=== PATIENT | female | born 1960 | race American Indian/Alaskan Native ===

== ENCOUNTER 2017-06-24 14:50 | Emergency (ER) | payer BC, MEDICAID ==
[2017-06-24 15:23] VITALS: O2SAT 100
[2017-06-24] MEDS ORDERED: Sodium Chloride 0.9% 1,000 ML IV ONE (16:03)
[2017-06-24] MEDS ORDERED: Sodium Chloride 0.9% 1,000 ML ONE (16:13)
--- NOTE | 2017-06-24 16:15 | C.PDOC ---
History Of Present Illness 56 year old female presents to Emergency Department for evaluation of a "dizzy spell" today while attending a wake. Dizziness is described as feeling off balance. She states she felt dizzy and had mild (1 out of 10 on pain scale) midsternal chest tightness when she heard grim news about family member. Patient reports intermittent chest discomfort associated with shortness of breath that lasts for approximately 10-15 minutes for 8 days. Denies any symptoms currently, and states she feels "fine" at this time. Patient states that she has been evaluated by her cryptologic support specialist, Dr. Tovar, with normal work up. PMD: Linda Diego Time Seen by Provider: 06/24/17 15:51 Chief Complaint (Nursing): Shortness Of Breath History Per: Patient History/Exam Limitations: no limitations Onset/Duration Of Symptoms: Days Current Symptoms Are (Timing): Still Present Associated Symptoms: Heart Racing, Dizziness. denies: Fever, Chills, Sweating, Bloody Cough, Productive Cough, Leg/Calf Pain, Ankle/Leg Swelling, Tingling In Hands Or Face, Musle Spasms In Hands Or Feet Recent travel outside of the [place]: No Additional History Per: Patient Past Medical History Reviewed: Historical Data, Nursing Documentation, Vital Signs Vital Signs: Last Vital Signs Temp 98.0 F 06/24/17 15:18 Pulse 96 H 06/24/17 16:20 Resp 20 06/24/17 16:20 BP 107/74 06/24/17 16:20 Pulse Ox 100 06/24/17 18:23 - Medical History PMH: Bronchitis, HTN, Hypercholesterolemia Denies: Chronic Kidney Disease Family History: States: Unknown Family Hx - Social History Hx Alcohol Use: No Hx Substance Use: No - Immunization History Hx Tetanus Toxoid Vaccination: No Hx Influenza Vaccination: No Hx Pneumococcal Vaccination: No Review Of Systems Except As Marked, All Systems Reviewed And Found Negative. Constitutional: Negative for: Fever, Chills Cardiovascular: Positive for: Chest Pain, Palpitations. Negative for: Edema, Light Headedness Respiratory: Positive for: Shortness of Breath. Negative for: Cough, Sputum Gastrointestinal: Positive for: Nausea. Negative for: Vomiting, Abdominal Pain Neurological: Positive for: Dizziness. Negative for: Weakness, Numbness, Headache Physical Exam - Physical Exam Appears: Non-toxic, No Acute Distress Skin: Normal Color, Warm, Dry Head: Atraumatic, Normacephalic Eye(s): bilateral: Normal Inspection, EOMI Oral Mucosa: Moist Neck: Normal ROM, Supple Chest: Symmetrical, No Deformity, Tenderness (reproducible chest tenderness) Cardiovascular: Rhythm Regular, No Murmur Respiratory: Normal Breath Sounds, No Rales, No Rhonchi, No Wheezing Gastrointestinal/Abdominal: Soft, No Tenderness Back: Normal Inspection Extremity: Normal ROM, No Pedal Edema, No Deformity Neurological/Psych: Oriented x3, Normal Speech Gait: Steady ED Course And Treatment - Laboratory Results Result Diagrams: 06/24/17 16:12 06/24/17 16:12 Lab Interpretation: No Acute Changes ECG: Interpreted By Me, Viewed By Me ECG Rhythm: Sinus Tachycardia ECG Interpretation: No Acute Changes Rate From EC (bpm) O2 Sat by Pulse Oximetry: 100 (RA) Pulse Ox Interpretation: Normal - Radiology CXR: Interpreted by Me, Viewed By Me CXR Interpretation: Yes: No Acute Disease, Heart Size (normal). No: Infiltrates , COPD, Pnemothorax Medical Decision Making Medical Decision Making: Plan: * Blood work * Urinalysis * CXR * IV fluids Reassess All labs reviewed, troponin was negative. Patient has no cardiac arrhythmia on monitor and no ischemic changes on EKG. Given labs , Xray and labs are negative after week of chest pain, low suspicion for ACS. Patient reevaluated and remains well in no acute distress. [facility] [employer] [facility] She has no current chest pain, dizziness or other somatic complaint. Dizzy episode likely related to stress reaction from family news. Discussed results with patient, and copy of reports was provided. Patient feels comfortable going home and will be discharged. Patient given follow up instructions to see Dr Tovar for further evaluation. Advise Aspirin for any chest pain. Instructed to return to ER if symptoms worsen or new symptoms arise. Disposition Counseled Patient/Family Regarding: Studies Performed, Diagnosis, Need For Followup - Disposition Referrals: Jan Tovar MD [Staff Provider] - Disposition: HOME/ ROUTINE Disposition Time: 18:20 Condition: STABLE Additional Instructions: Thank you for allowing the [facility] team to be part of your care today. Your provider today was LEX Constantino. Your EKG, labs and XRay were normal. Your cholesterol was borderline high. Please follow up with your cryptologic support specialist Dr Tovar and with your primary doctor for further evaluation. Continue with your current medications as prescribed by your doctor. Instructions: Stress (ED), Noncardiac Chest Pain (ED) Forms: [facility] (Honduran) - POA Present On Arrival: None - Clinical Impression Clinical Impression: Stress reaction, Chest discomfort - PA / GENERAL SURGEON / Resident Statement MD/DO has reviewed & agrees with the documentation as recorded. - Scribe Statement The provider has reviewed the documentation as recorded by the Scribfreya Denney All medical record entries made by the Yairibfreya were at my direction and personally dictated by me. I have reviewed the chart and agree that the record accurately reflects my personal performance of the history, physical exam, medical decision making, and the department course for this patient. I have also personally directed, reviewed, and agree with the discharge instructions and disposition.
[2017-06-24 16:22] LABS: BASO # 0.1 K/uL (0.0-0.2); BASO % 0.8 % (0.0-2.0); EOS % 0.3 % (0.0-4.0); HEMATOCRIT 43.8 % (34.0-47.0); LYMPH # 2.3 K/uL (1.0-4.3); LYMPH % 24.4 % (20.0-40.0); MEAN CELL VOLUME 87.3 fL (81.0-99.0); MEAN CORPUSCULAR HEMOGLOBIN 29.8 pg (27.0-31.0); MEAN CORPUSCULAR HGB CONC 34.2 g/dL (33.0-37.0); MEAN PLATELET VOLUME 8.5 fL (7.2-11.7); MONO # 0.4 K/uL (0.0-0.8); MONO % 4.3 % (0.0-10.0); RED CELL DISTRIBUTION WIDTH 13.5 % (11.5-14.5); WHITE BLOOD COUNT 9.4 K/uL (4.8-10.8)
[2017-06-24 16:28] LABS: CHLORIDE 94 mmol/L (98-107); POTASSIUM 3.9 mmol/L (3.6-5.2); SODIUM 133 mmol/L (132-148)
[2017-06-24 16:30] LABS: ALKALINE PHOSPHATASE 85 U/L (38-126); ALT/SGPT 28 U/L (9-52); AST/SGOT 28 U/L (14-36); BILIRUBIN,TOTAL 0.9 mg/dL (0.2-1.3); BLOOD UREA NITROGEN 13 mg/dL (7-17); CARBON DIOXIDE 26 mmol/L (22-30); CHOLESTEROL 209 mg/dL (0-199); GFR AFRICAN-AMERICAN > 60; GLUCOSE,RANDOM 92 mg/dL (65-105); TOTAL PROTEIN 9.4 g/dL (6.3-8.3)
[2017-06-24 16:31] LABS: CALCIUM 9.7 mg/dl (8.6-10.4)
[2017-06-24 17:25] VITALS: RESP 20
--- NOTE | 2017-06-24 18:43 | RAD ---
HISTORY: chest pain COMPARISON: Comparison chest 06/25/2016 TECHNIQUE: Chest PA and lateral FINDINGS: LUNGS: No active pulmonary disease. PLEURA: No significant pleural effusion identified. No pneumothorax apparent. CARDIOVASCULAR: Normal. OSSEOUS STRUCTURES: Minor multilevel degenerative spondylosis of the thoracic spine. The VISUALIZED UPPER ABDOMEN: Normal. OTHER FINDINGS: None. IMPRESSION: No active disease.
[2017-06-24 18:50] VITALS: BP 105/66; PULSE 91; TEMP 98.2
--- NOTE | 2017-06-27 21:24 | CARD ---
APPROVED REPORT EKG Measurement Heart [id number] <Conclusion> Sinus tachycardia Possible Left atrial enlargement Borderline ECG
== END 2017-06-24 18:54 | disposition home or self-care (01) ==
LOC: C.ER 14:50
DX: F43.9 Reaction to severe stress, unspecified (principal); R07.89 Other chest pain
CPT/HCPCS: 71020; 80053; 80061; 84484; 85025; 93005; 96360; 99285; J7040

== ENCOUNTER 2017-10-22 20:28 | Observation (INO) | payer MEDICAID ==
[2017-10-22] MEDS ORDERED: Sodium Chloride 0.9% 1,000 ML IV ONE (21:21)
[2017-10-22] MEDS ORDERED: Sodium Chloride 0.9% 1,000 ML ONE (21:40)
--- NOTE | 2017-10-22 21:51 | C.PDOC ---
History Of Present Illness 57 year old female presents to the ED for evaluation of an episode of chest pressure, dizziness and nausea which occurred at approx. 16:00 this afternoon. Patient reports episode lasted a few minutes, resolved, and then recurred shortly after with only nausea before resolving once again. No syncope. No vomiting or abdominal pain. No other acute complaints at this time. Time Seen by Provider: 10/22/17 21:08 Chief Complaint (Nursing): Dizziness/Lightheaded History Per: Patient History/Exam Limitations: no limitations Onset/Duration Of Symptoms: Intermittent Episodes Current Symptoms Are (Timing): Gone Seizure Or Post-ictal Symptoms: None Fall Associated With With Symptoms: No Recent travel outside of the [place]: No Past Medical History Reviewed: Historical Data, Nursing Documentation, Vital Signs Vital Signs: Last Vital Signs Temp 98.4 F 10/22/17 20:45 Pulse 126 H 10/22/17 20:45 Resp 16 10/22/17 20:45 BP 135/85 10/22/17 20:45 Pulse Ox 98 10/23/17 00:31 - Medical History PMH: Bronchitis, HTN, Hypercholesterolemia Denies: Chronic Kidney Disease Family History: States: Unknown Family Hx - Social History Hx Alcohol Use: No Hx Substance Use: No - Immunization History Hx Tetanus Toxoid Vaccination: No Hx Influenza Vaccination: No Hx Pneumococcal Vaccination: No Review Of Systems Except As Marked, All Systems Reviewed And Found Negative. Cardiovascular: Negative for: Other (syncope) Gastrointestinal: Positive for: Nausea. Negative for: Vomiting, Abdominal Pain Neurological: Positive for: Dizziness. Negative for: Headache Physical Exam - Physical Exam Appears: Non-toxic, No Acute Distress Skin: Normal Color, Warm, Dry Head: Atraumatic, Normacephalic Eye(s): bilateral: Normal Inspection, PERRL, EOMI Oral Mucosa: Moist Throat: Normal Neck: Normal, Normal ROM, Supple Chest: Symmetrical Cardiovascular: Rhythm Regular Respiratory: Normal Breath Sounds, No Rales, No Rhonchi, No Wheezing Gastrointestinal/Abdominal: Soft, No Tenderness Back: Normal Inspection Extremity: Normal ROM, No Deformity Extremity: Bilateral: Atraumatic Neurological/Psych: Oriented x3, Normal Speech, Normal Motor, Normal Sensation Gait: Steady ED Course And Treatment - Laboratory Results Result Diagrams: 10/22/17 21:50 10/22/17 21:50 ECG: Interpreted By Me, Viewed By Me Interpretation Of ECG: Sinus tachycardia at 121 beats per minute, normal intervals, normal axis, nonspecific ST-T wave changes. O2 Sat by Pulse Oximetry: 98 (on RA) Pulse Ox Interpretation: Normal - CT Scan/US CTA Chest Other Rad Studies (CT/US): Read By Radiologist, Radiology Report Reviewed CT/US Interpretation: IMPRESSION: Limited by bolus timing, no aortic aneurysm or central pulmonary embolus, no focal. pneumonia; gallstones Medical Decision Making Medical Decision Making: patient resting comfortably, repeat heart rate 96 bpm. case discussed with Dr. Cox and will admit to med. surgical floor. Disposition Discussed With : Cheryl Cox Doctor Will See Patient In The: Hospital Counseled Patient/Family Regarding: Studies Performed, Diagnosis - Disposition Disposition: HOSPITALIZED Disposition Time: 00:30 Condition: FAIR Forms: [facility] [facility] (Arabic) - POA Core Measure Indicators: Chest Pain - Clinical Impression Clinical Impression: Chest pain - Scribe Statement The provider has reviewed the documentation as recorded by the Walter Barton Provider Attestation: All medical record entries made by the Yairibfreya were at my direction and personally dictated by me. I have reviewed the chart and agree that the record accurately reflects my personal performance of the history, physical exam, medical decision making, and the department course for this patient. I have also personally directed, reviewed, and agree with the discharge instructions and disposition.
[2017-10-22 21:53] LABS: BASO % 0.5 % (0.0-2.0); EOS % 0.6 % (0.0-4.0); HEMOGLOBIN 14.6 g/dL (11.0-16.0); LYMPH # 2.2 K/uL (1.0-4.3); LYMPH % 30.8 % (20.0-40.0); MEAN CELL VOLUME 88.2 fL (81.0-99.0); MEAN CORPUSCULAR HEMOGLOBIN 30.4 pg (27.0-31.0); MEAN CORPUSCULAR HGB CONC 34.5 g/dL (33.0-37.0); MEAN PLATELET VOLUME 7.7 fL (7.2-11.7); MONO # 0.4 K/uL (0.0-0.8); MONO % 5.7 % (0.0-10.0); NEUT # 4.4 K/uL (1.8-7.0); NEUT % 62.4 % (50.0-75.0); RBC 4.81 Mil/uL (3.80-5.20); RED CELL DISTRIBUTION WIDTH 13.4 % (11.5-14.5)
[2017-10-22 22:06] LABS: ALB/GLOB RATIO 1.1 (1.0-2.1); ALBUMIN 4.5 g/dL (3.5-5.0); ALT/SGPT 28 U/L (9-52); AST/SGOT 22 U/L (14-36); BLOOD UREA NITROGEN 10 mg/dL (7-17); CALCIUM 9.9 mg/dl (8.6-10.4); GFR AFRICAN-AMERICAN > 60; GFR NON-AFRICAN AMERICAN > 60
[2017-10-22 22:12] LABS: SQUAMOUS EPITHIAL 1 /hpf (0-5); URINE BILIRUBIN NEGATIVE (NEGATIVE); URINE BLOOD 1+ (NEGATIVE); URINE CLARITY Clear (Clear); URINE COLOR Yellow (YELLOW); URINE GLUCOSE (UA) NORMAL (Normal); URINE LEUKOCYTE ESTERASE NEG Leu/uL (Negative); URINE NITRATE NEGATIVE (NEGATIVE); URINE PROTEIN NEGATIVE (NEGATIVE)
[2017-10-22] MEDS ORDERED: Iodixanol 320 MG/ML 100 ML BOTTLE IV ONE (22:53)
--- NOTE | 2017-10-23 00:05 | CT ---
EXAM: CT Angiography Chest With Intravenous Contrast EXAM DATE/TIME: 10/22/2017 10:18 PM CLINICAL HISTORY: 57 years old, female; Signs and symptoms; Other: High d dimmer; Additional info: Elevatd dimer, dizziness, tachycardia TECHNIQUE: Axial computed tomographic angiography images of the chest with intravenous contrast using pulmonary embolism protocol. All CT scans at this facility use one or more dose reduction techniques, viz.: automated exposure control; ma/kV adjustment per patient size (including targeted exams where dose is matched to indication; i.e. head); or iterative reconstruction technique. Coronal and sagittal reformatted images were created and reviewed. CONTRAST: 100 mL of visipaque administered intravenously. COMPARISON: There are no prior studies for comparison. FINDINGS: Artifacts: Motion artifact degrades image quality. Heart, aorta and Pulmonary arteries: Heart size is normal. There is no pericardial effusion. Aorta is normal in caliber. There no central pulmonary emboli. Bolus timing limits evaluation of peripheral vessels. Lungs and pleural spaces: Trachea and main bronchi are patent.There is no pneumothorax. There is dependent atelectasis bilaterally. There is atelectasis and scarring in the right middle lobe. There is scarring at the lung bases. There are no effusions. Mediastinum: Esophagus is unremarkable. There is a small hiatal hernia. There no pathologically enlarged mediastinal or hilar nodes. Thyroid: Thyroid is unremarkable Bones/joints: There are degenerative changes in the osseus structures. Soft tissues: unremarkable Upper abdomen: There are no acute abnormalities in the visualized portion of the abdomen. Gallbladder is distended with stones. IMPRESSION: Limited by bolus timing, no aortic aneurysm or central pulmonary embolus, no focal pneumonia; gallstones
--- NOTE | 2017-10-23 07:41 | RAD ---
Chest x-ray single frontal view History: Chest pain. Comparison: 06/24/2017 Findings: No focal infiltrate or effusion. Heart size within normal limits. Impression: No focal infiltrate or effusion.
[2017-10-23] MEDS: Pantoprazole 40 mg EC Tab PO SCH (09:45)
[2017-10-23] MEDS: Multiple Vitamins Tab PO SCH (09:45)
[2017-10-23] MEDS ORDERED: Enoxaparin 40 mg Syringe SC SCH ×2 (10:00→22:00)
[2017-10-23 13:57] LABS: B-TYPE NATRIURETIC PEPTIDE 11.5 pg/mL (0-900)
--- NOTE | 2017-10-23 14:31 | CP.PCM.CON ---
History of Present Illness - History of Present Illness History of Present Illness: Reason for consultation: chest pressure and elevated d-dimer Patient is 57-year-old female with history of hypertension presented to emergency room yesterday with chest pressure that started around 4 PM and later patient had vomiting and dizziness. Denies shortness of breath, denies cough, denies fever chills. CAT scan of the chest with contrast showed no pulmonary embolism. Patient has history of smoking and quit 16 years ago. Patient states she never had wheezing, shortness of breath. Also complaining off nocturnal snoring and feel tired and sleepy during the daytime. Review of Systems - Review of Systems All systems: reviewed and no additional remarkable complaints except (chest pressure) Past Patient History - Infectious Disease Hx of Infectious Diseases: None - Tetanus Immunizations Tetanus Immunization: Unknown - Past Medical History & Family History Past Medical History?: Yes - Past Social History Smoking Status: Former Smoker - CARDIAC Hx Hypercholesterolemia: Yes Hx Hypertension: Yes - PULMONARY Hx Bronchitis: Yes - NEUROLOGICAL Hx Neurological Disorder: No - HEENT Hx HEENT Problems: No - RENAL Hx Chronic Kidney Disease: No - ENDOCRINE/METABOLIC Hx Endocrine Disorders: No - HEMATOLOGICAL/ONCOLOGICAL Hx Blood Disorders: No - INTEGUMENTARY Hx Dermatological Problems: No - MUSCULOSKELETAL/RHEUMATOLOGICAL Hx Musculoskeletal Disorders: No Hx Falls: No - GASTROINTESTINAL Hx Gastrointestinal Disorders: No - GENITOURINARY/GYNECOLOGICAL Hx Genitourinary Disorders: No - PSYCHIATRIC Hx Substance Use: No - SURGICAL HISTORY Hx Surgeries: No - ANESTHESIA Hx Anesthesia: No Meds Allergies/Adverse Reactions: Allergies Allergy/AdvReac Type Severity Reaction Status Date / Time No Known Allergies Allergy Verified 10/22/17 20:51 - Medications Medications: Current Medications Amlodipine Besylate (Norvasc) 10 mg PO DAILY [facility] Last Admin: 10/23/17 09:45 Dose: 10 mg Enoxaparin Sodium (Lovenox) 40 mg SC DAILY [facility] Last Admin: 10/23/17 09:45 Dose: 40 mg Hydrochlorothiazide (Hydrodiuril) 25 mg PO DAILY [facility] Last Admin: 10/23/17 09:45 Dose: 25 mg Losartan Potassium (Cozaar) 100 mg PO DAILY [facility] Last Admin: 10/23/17 09:45 Dose: 100 mg Multivitamins (Hexavitamin) 1 tab PO DAILY [facility] Last Admin: 10/23/17 09:45 Dose: 1 tab Pantoprazole Sodium (Protonix Ec Tab) 40 mg PO DAILY [facility] Last Admin: 10/23/17 09:45 Dose: 40 mg Physical Exam - Head Exam Head Exam: ATRAUMATIC, NORMOCEPHALIC - Eye Exam Eye Exam: Normal appearance - ENT Exam ENT Exam: Mucous Membranes Moist - Neck Exam Neck exam: Positive for: Normal Inspection - Respiratory Exam Respiratory Exam: Clear to Auscultation Bilateral - Cardiovascular Exam Cardiovascular Exam: REGULAR RHYTHM - GI/Abdominal Exam GI & Abdominal Exam: Normal Bowel Sounds, Soft - Extremities Exam Extremities exam: Positive for: normal inspection - Neurological Exam Neurological exam: Alert, Oriented x3 Results - Vital Signs Recent Vital Signs: Last Vital Signs Temp 98.4 F 10/23/17 09:00 Pulse 72 10/23/17 12:02 Resp 20 10/23/17 12:02 BP 132/77 10/23/17 12:02 Pulse Ox 97 10/23/17 12:02 - Labs Result Diagrams: 10/22/17 21:50 10/22/17 21:50 Labs: Laboratory Results - last 24 hr 10/22/17 10/22/17 10/22/17 21:10 21:50 21:50 WBC 7.0 RBC 4.81 Hgb 14.6 Hct 42.5 MCV 88.2 MCH 30.4 MCHC 34.5 RDW 13.4 Plt Count 328 MPV 7.7 Neut % (Auto) 62.4 Lymph % (Auto) 30.8 [place] % (Auto) 5.7 Eos % (Auto) 0.6 Baso % (Auto) 0.5 Neut # (Auto) 4.4 Lymph # (Auto) 2.2 [place] # (Auto) 0.4 Eos # (Auto) 0.0 Baso # (Auto) 0.0 D-Dimer, Quantitative 247 H Sodium Potassium Chloride Carbon Dioxide Anion Gap BUN Creatinine Est GFR ( Amer) Est GFR (Non-Af Amer) POC Glucose (mg/dL) 85 Random Glucose Calcium Total Bilirubin AST ALT Alkaline Phosphatase Troponin I NT-Pro-B Natriuret Pep Total Protein Albumin Globulin Albumin/Globulin Ratio Urine Color Urine Clarity Urine pH Ur Specific [place] Urine Protein Urine Glucose (UA) Urine Ketones Urine Blood Urine Nitrate Urine Bilirubin Urine Urobilinogen Ur Leukocyte Esterase Urine WBC (Auto) Urine RBC (Auto) Ur Squamous Epith Cells 10/22/17 10/22/1718 21:50 22:07 13:31 WBC RBC Hgb Hct MCV MCH MCHC RDW Plt Count MPV Neut % (Auto) Lymph % (Auto) [place] % (Auto) Eos % (Auto) Baso % (Auto) Neut # (Auto) Lymph # (Auto) [place] # (Auto) Eos # (Auto) Baso # (Auto) D-Dimer, Quantitative Sodium 136 Potassium 3.5 L Chloride 94 L Carbon Dioxide 30 Anion Gap 16 BUN 10 Creatinine 0.8 Est GFR ( Amer) > 60 Est GFR (Non-Af Amer) > 60 POC Glucose (mg/dL) Random Glucose 99 Calcium 9.9 Total Bilirubin 0.7 AST 22 ALT 28 Alkaline Phosphatase 84 Troponin I < 0.0120 < 0.0120 NT-Pro-B Natriuret Pep 11.5 Total Protein 8.6 H Albumin 4.5 Globulin 4.1 H Albumin/Globulin Ratio 1.1 Urine Color Yellow Urine Clarity Clear Urine pH 6.0 Ur Specific [place] 1.015 Urine Protein Negative Urine Glucose (UA) Normal Urine Ketones Negative Urine Blood 1+ H Urine Nitrate Negative Urine Bilirubin Negative Urine Urobilinogen 2.0 H Ur Leukocyte Esterase Neg Urine WBC (Auto) < 1 Urine RBC (Auto) 2 Ur Squamous Epith Cells 1 Assessment & Plan (1) Chest discomfort Status: Acute Comment: unlikely sec to pulmonary embolism. cardiology workup, continue aspirin and Lovenox for now. Start nebulizer treatment because of history of smoking. Echocardiogram. Rule out acid reflux and continue Protonix
[2017-10-23] MEDS: Enoxaparin 120 mg Syringe SC SCH (17:15)
[2017-10-23 18:14] VITALS: RESP 20
[2017-10-24] MEDS: Albuterol-Ipratrop 3 mg / 0.5 (3 ml) UD INH SCH ×4 (02:50→19:57)
[2017-10-24] MEDS: Enoxaparin 120 mg Syringe SC SCH (03:00)
--- NOTE | 2017-10-24 08:01 | CP.PCM.CON ---
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 Described the sx as pressure like in sensation accompanied with mild SOB and dizziness. Was seen by and r/o PE. Review of Systems - Review of Systems All systems: reviewed and no additional remarkable complaints except - Constitutional Constitutional: As Per HPI - EENT Eyes: As Per HPI Ears: As Per HPI - Breasts Breasts: As Per HPI - Cardiovascular Cardiovascular: As Per HPI - Respiratory Respiratory: As Per HPI - Gastrointestinal Gastrointestinal: As Per HPI - Genitourinary Genitourinary: As Per HPI - Reproductive: Female Reproductive:Female: As Per HPI - Menstruation Menstruation: As Per HPI - Musculoskeletal Musculoskeletal: As Per HPI - Integumentary Integumentary: As Per HPI - Neurological Neurological: As Per HPI - Psychiatric Psychiatric: As Per HPI - Endocrine Endocrine: As Per HPI - Hematologic/Lymphatic Hematologic: As Per HPI Past Patient History - Infectious Disease Hx of Infectious Diseases: None - Tetanus Immunizations Tetanus Immunization: Unknown - Past Medical History & Family History Past Medical History?: Yes - Past Social History Smoking Status: Former Smoker - CARDIAC Hx Hypercholesterolemia: Yes Hx Hypertension: Yes - PULMONARY Hx Bronchitis: Yes - NEUROLOGICAL Hx Neurological Disorder: No - HEENT Hx HEENT Problems: No - RENAL Hx Chronic Kidney Disease: No - ENDOCRINE/METABOLIC Hx Endocrine Disorders: No - HEMATOLOGICAL/ONCOLOGICAL Hx Blood Disorders: No - INTEGUMENTARY Hx Dermatological Problems: No - MUSCULOSKELETAL/RHEUMATOLOGICAL Hx Musculoskeletal Disorders: No Hx Falls: No - GASTROINTESTINAL Hx Gastrointestinal Disorders: No - GENITOURINARY/GYNECOLOGICAL Hx Genitourinary Disorders: No - PSYCHIATRIC Hx Substance Use: No - SURGICAL HISTORY Hx Surgeries: No - ANESTHESIA Hx Anesthesia: No Meds Allergies/Adverse Reactions: Allergies Allergy/AdvReac Type Severity Reaction Status Date / Time No Known Allergies Allergy Verified 10/22/17 20:51 - Medications Medications: Current Medications Albuterol/Ipratropium (Duoneb 3 Mg/0.5 Mg (3 Ml) Ud) 3 ml INH RQ6 [facility] Last Admin: 10/24/17 07:43 Dose: Not Given Amlodipine Besylate (Norvasc) 10 mg PO DAILY [facility] Last Admin: 10/23/17 09:45 Dose: 10 mg Aspirin (Aspirin) 325 mg PO DAILY [facility] Enoxaparin Sodium (Lovenox) 120 mg SC Q12H [facility] Last Admin: 10/24/17 03:00 Dose: Not Given Hydrochlorothiazide (Hydrodiuril) 25 mg PO DAILY [facility] Last Admin: 10/23/17 09:45 Dose: 25 mg Losartan Potassium (Cozaar) 100 mg PO DAILY [facility] Last Admin: 10/23/17 09:45 Dose: 100 mg Multivitamins (Hexavitamin) 1 tab PO DAILY [facility] Last Admin: 10/23/17 09:45 Dose: 1 tab Pantoprazole Sodium (Protonix Ec Tab) 40 mg PO DAILY [facility] Last Admin: 10/23/17 09:45 Dose: 40 mg Physical Exam - Constitutional Appears: Well - Head Exam Head Exam: ATRAUMATIC, NORMAL INSPECTION, NORMOCEPHALIC - Eye Exam Eye Exam: EOMI, Normal appearance, PERRL Pupil Exam: NORMAL ACCOMODATION, PERRL - ENT Exam ENT Exam: Mucous Membranes Moist, Normal Exam - Neck Exam Neck exam: Positive for: Normal Inspection - Respiratory Exam Respiratory Exam: Clear to Auscultation Bilateral, NORMAL BREATHING PATTERN - Cardiovascular Exam Cardiovascular Exam: REGULAR RHYTHM, RRR, +S1, +S2, Systolic Murmur - GI/Abdominal Exam GI & Abdominal Exam: Normal Bowel Sounds, Soft. absent: Tenderness - Extremities Exam Extremities exam: Positive for: normal inspection - Back Exam Back exam: NORMAL INSPECTION - Neurological Exam Neurological exam: Alert, CN II-XII Intact, Normal Gait, Oriented x3, Reflexes Normal - Psychiatric Exam Psychiatric exam: Normal Affect, Normal Mood - Skin Skin Exam: Dry, Intact, Normal Color, Warm Results - Vital Signs Recent Vital Signs: Last Vital Signs Temp 98.3 F 10/23/17 23:45 Pulse 93 H 10/23/17 23:45 Resp 20 10/23/17 23:45 BP 125/68 10/23/17 23:45 Pulse Ox 97 10/23/17 23:45 - Labs Result Diagrams: 10/22/17 21:50 10/22/17 21:50 Labs: Laboratory Results - last 24 hr 10/23/17 13:31 Troponin I < 0.0120 NT-Pro-B Natriuret Pep 11.5 Assessment & Plan (1) Angina at rest Assessment and Plan: plan for cath in am NPO p MN Status: Acute (2) HTN (hypertension) Assessment and Plan: cont BP meds Status: Acute (3) Chest pain Status: Acute (4) Chest discomfort Status: Acute
[2017-10-24 08:02] LABS: HEMOGLOBIN 14.4 g/dL (11.0-16.0); MEAN CELL VOLUME 88.4 fL (81.0-99.0); MEAN CORPUSCULAR HEMOGLOBIN 30.2 pg (27.0-31.0); MEAN CORPUSCULAR HGB CONC 34.2 g/dL (33.0-37.0); MEAN PLATELET VOLUME 7.8 fL (7.2-11.7); RBC 4.75 Mil/uL (3.80-5.20); RED CELL DISTRIBUTION WIDTH 13.3 % (11.5-14.5); WHITE BLOOD COUNT 6.8 K/uL (4.8-10.8)
--- NOTE | 2017-10-24 08:03 | CP.PCM.CON ---
History of Present Illness - History of Present Illness History of Present Illness: Subjective: Past Patient History - Infectious Disease Hx of Infectious Diseases: None - Tetanus Immunizations Tetanus Immunization: Unknown - Past Medical History & Family History Past Medical History?: Yes - Past Social History Smoking Status: Former Smoker - CARDIAC Hx Hypercholesterolemia: Yes Hx Hypertension: Yes - PULMONARY Hx Bronchitis: Yes - NEUROLOGICAL Hx Neurological Disorder: No - HEENT Hx HEENT Problems: No - RENAL Hx Chronic Kidney Disease: No - ENDOCRINE/METABOLIC Hx Endocrine Disorders: No - HEMATOLOGICAL/ONCOLOGICAL Hx Blood Disorders: No - INTEGUMENTARY Hx Dermatological Problems: No - MUSCULOSKELETAL/RHEUMATOLOGICAL Hx Musculoskeletal Disorders: No Hx Falls: No - GASTROINTESTINAL Hx Gastrointestinal Disorders: No - GENITOURINARY/GYNECOLOGICAL Hx Genitourinary Disorders: No - PSYCHIATRIC Hx Substance Use: No - SURGICAL HISTORY Hx Surgeries: No - ANESTHESIA Hx Anesthesia: No Meds Allergies/Adverse Reactions: Allergies Allergy/AdvReac Type Severity Reaction Status Date / Time No Known Allergies Allergy Verified 10/22/17 20:51 - Medications Medications: Current Medications Albuterol/Ipratropium (Duoneb 3 Mg/0.5 Mg (3 Ml) Ud) 3 ml INH RQ6 [facility] Last Admin: 10/24/17 07:43 Dose: Not Given Amlodipine Besylate (Norvasc) 10 mg PO DAILY [facility] Last Admin: 10/23/17 09:45 Dose: 10 mg Aspirin (Aspirin) 325 mg PO DAILY [facility] Enoxaparin Sodium (Lovenox) 120 mg SC Q12H [facility] Last Admin: 10/24/17 03:00 Dose: Not Given Hydrochlorothiazide (Hydrodiuril) 25 mg PO DAILY [facility] Last Admin: 10/23/17 09:45 Dose: 25 mg Losartan Potassium (Cozaar) 100 mg PO DAILY [facility] Last Admin: 10/23/17 09:45 Dose: 100 mg Multivitamins (Hexavitamin) 1 tab PO DAILY [facility] Last Admin: 10/23/17 09:45 Dose: 1 tab Pantoprazole Sodium (Protonix Ec Tab) 40 mg PO DAILY [facility] Last Admin: 10/23/17 09:45 Dose: 40 mg Results - Vital Signs Recent Vital Signs: Last Vital Signs Temp 98.3 F 10/23/17 23:45 Pulse 93 H 10/23/17 23:45 Resp 20 10/23/17 23:45 BP 125/68 10/23/17 23:45 Pulse Ox 97 10/23/17 23:45 - Labs Result Diagrams: 10/22/17 21:50 10/22/17 21:50 Labs: Laboratory Results - last 24 hr 10/23/17 13:31 Troponin I < 0.0120 NT-Pro-B Natriuret Pep 11.5
[2017-10-24 08:12] LABS: BLOOD UREA NITROGEN 9 mg/dL (7-17); CALCIUM 9.9 mg/dl (8.6-10.4); GFR AFRICAN-AMERICAN > 60; GFR NON-AFRICAN AMERICAN > 60; HDL CHOLESTEROL 46 mg/dL (30-70)
[2017-10-24 08:22] LABS: LDL CHOLESTEROL 123 mg/dL (0-129)
--- NOTE | 2017-10-24 08:41 | CP.PCM.PN ---
<Oscar Denney - Last Filed: 10/24/17 16:56> Subjective - Date & Time of Evaluation Date of Evaluation: 10/24/17 Time of Evaluation: 09:10 - Subjective Subjective: Subjective: Patient seen and examined at bedside. No acute events overnight. States baseline chest pain has resolved. Offers no new complaints at this time. Denies fever, chills, chest pain, SOB, and palpitations. 12 point ROS negative except as indicated in HPI. Physical Examination: - Constitutional Appears: NAD - Head Exam Head Exam: ATRAUMATIC, NORMAL INSPECTION, NORMOCEPHALIC - Eye Exam Eye Exam: EOMI, Normal appearance, PERRL Pupil Exam: NORMAL ACCOMODATION, PERRL - ENT Exam ENT Exam: Mucous Membranes Moist, Normal Exam - Neck Exam Neck exam: Positive for: Normal Inspection - Respiratory Exam Respiratory Exam: Clear to Auscultation Bilateral, NORMAL BREATHING PATTERN - Cardiovascular Exam Cardiovascular Exam: REGULAR RHYTHM, RRR, +S1, +S2, Systolic Murmur - GI/Abdominal Exam GI & Abdominal Exam: Normal Bowel Sounds, Soft. absent: Tenderness - Extremities Exam Extremities exam: Positive for: normal inspection - Back Exam Back exam: NORMAL INSPECTION - Neurological Exam Neurological exam: Awake, alert, responds to verbal stimuli, answers questions appropriately, follows commands, and moves extremities past midline - Psychiatric Exam Psychiatric exam: Normal Affect, Normal Mood - Skin Skin Exam: Dry, Intact, Normal Color, Warm Assessment and Plan: Patient is a 57 year old female with a past medical history of hypertension who presents for evaluation and treatment of chest pain. Angina at rest - diagnostic cardiac catherization tentatively planned for 2pm on 10/24/2017 - keep patient NPO Hx of HTN (hypertension) - BP reviewed, trended, and appreciated- controlled with goal SBP between 90- 150mmHG and DBP between 90-100mmHG - continue with amlodipine, HCTZ, and losartan Patient case reviewed with and plan approved by attending physician, Dr. Armstrong. Objective - Vital Signs/Intake and Output Vital Signs (last 24 hours): Temp Pulse Resp BP Pulse Ox 98.3 F 93 H 20 125/68 97 10/23/17 23:45 10/23/17 23:45 10/23/17 23:45 10/23/17 23:45 10/23/17 23:45 Intake and Output: 10/24/17 10/24/17 06:59 18:59 Intake Total 0 Balance 0 - Medications Medications: Current Medications Albuterol/Ipratropium (Duoneb 3 Mg/0.5 Mg (3 Ml) Ud) 3 ml INH RQ6 [facility] Last Admin: 10/24/17 07:43 Dose: Not Given Amlodipine Besylate (Norvasc) 10 mg PO DAILY [facility] Last Admin: 10/23/17 09:45 Dose: 10 mg Aspirin (Aspirin) 325 mg PO DAILY [facility] Enoxaparin Sodium (Lovenox) 120 mg SC Q12H [facility] Last Admin: 10/24/17 03:00 Dose: Not Given Hydrochlorothiazide (Hydrodiuril) 25 mg PO DAILY [facility] Last Admin: 10/23/17 09:45 Dose: 25 mg Losartan Potassium (Cozaar) 100 mg PO DAILY [facility] Last Admin: 10/23/17 09:45 Dose: 100 mg Multivitamins (Hexavitamin) 1 tab PO DAILY [facility] Last Admin: 10/23/17 09:45 Dose: 1 tab Pantoprazole Sodium (Protonix Ec Tab) 40 mg PO DAILY [facility] Last Admin: 10/23/17 09:45 Dose: 40 mg - Labs Labs: 10/24/17 07:45 10/24/17 07:45 <Bandar Armstrong - Last Filed: 10/24/17 18:40> Objective - Vital Signs/Intake and Output Vital Signs (last 24 hours): Temp Pulse Resp BP Pulse Ox 97.4 F L 82 20 113/80 97 10/24/17 08:44 10/24/17 12:00 10/24/17 08:44 10/24/17 10:07 10/24/17 08:44 Intake and Output: 10/24/17 10/24/17 06:59 18:59 Intake Total 0 Balance 0 - Medications Medications: Current Medications Albuterol/Ipratropium (Duoneb 3 Mg/0.5 Mg (3 Ml) Ud) 3 ml INH RQ6 [facility] Last Admin: 10/24/17 07:43 Dose: Not Given Amlodipine Besylate (Norvasc) 10 mg PO DAILY [facility] Last Admin: 10/24/17 10:07 Dose: 10 mg Aspirin (Aspirin) 325 mg PO DAILY [facility] Last Admin: 10/24/17 10:07 Dose: 325 mg Hydrochlorothiazide (Hydrodiuril) 25 mg PO DAILY [facility] Last Admin: 10/24/17 10:07 Dose: 25 mg Sodium Chloride (Sodium Chloride 0.9%) 500 mls @ 50 mls/hr IV .Q10H [facility] Losartan Potassium (Cozaar) 100 mg PO DAILY [facility] Last Admin: 10/24/17 10:08 Dose: 100 mg Multivitamins (Hexavitamin) 1 tab PO DAILY [facility] Last Admin: 10/24/17 10:08 Dose: 1 tab Pantoprazole Sodium (Protonix Ec Tab) 40 mg PO DAILY [facility] Last Admin: 10/24/17 10:08 Dose: 40 mg - Labs Labs: 10/24/17 07:45 10/24/17 07:45 PT 12.9 SECONDS (9.7-12.2) H 10/24/17 13:26 INR 1.1 10/24/17 13:26 APTT 32 SECONDS (21-34) 10/24/17 13:26 Assessment and Plan (1) Angina at rest Assessment & Plan: s/p LHCx ( RCA 60% , LAD proximal 50% non-obstructive ) med rx with asa, bb, statins, nitrates Status: Acute (2) HTN (hypertension) Status: Acute (3) Chest pain Status: Acute (4) Chest discomfort Status: Acute Attending/Attestation - Attestation I have personally seen and examined this patient.: Yes I have fully participated in the care of the patient.: Yes I have reviewed all pertinent clinical information, including history, physical exam and plan: Yes
[2017-10-24] MEDS: Pantoprazole 40 mg EC Tab PO SCH (10:08)
[2017-10-24] MEDS: Multiple Vitamins Tab PO SCH (10:08)
[2017-10-24] MEDS ORDERED: DiphenhydrAMINE 50 mg/ml Inj ONE (13:10)
--- NOTE | 2017-10-24 13:11 | CP.PCM.PN ---
Subjective - Date & Time of Evaluation Date of Evaluation: 10/24/17 Time of Evaluation: 11:00 - Subjective Subjective: Patient seen and examined at bedside today. She is resting comfortably and reports feeling better than yesterday. She reports improving chest discomfort and denies fever, chills, palpitations, shortness of breath, cough, wheezing. Chest CTA with contrast showed no pulmonary embolism. She is scheduled for cardiac catheterization, will need to rule out cardiac causes of chest pain. Assessment/Plan: 1. Chest discomfort - negative for pulmonary embolism, no respiratory distress, continue workup for cardiac causes of chest discomfort per primary/cardiology team Objective - Vital Signs/Intake and Output Vital Signs (last 24 hours): Temp Pulse Resp BP Pulse Ox 97.4 F L 82 20 113/80 97 10/24/17 08:44 10/24/17 12:00 10/24/17 08:44 10/24/17 10:07 10/24/17 08:44 Intake and Output: 10/24/17 10/24/17 06:59 18:59 Intake Total 0 Balance 0 - Medications Medications: Current Medications Albuterol/Ipratropium (Duoneb 3 Mg/0.5 Mg (3 Ml) Ud) 3 ml INH RQ6 [facility] Last Admin: 10/24/17 07:43 Dose: Not Given Amlodipine Besylate (Norvasc) 10 mg PO DAILY [facility] Last Admin: 10/24/17 10:07 Dose: 10 mg Aspirin (Aspirin) 325 mg PO DAILY [facility] Last Admin: 10/24/17 10:07 Dose: 325 mg Enoxaparin Sodium (Lovenox) 120 mg SC Q12H [facility] Last Admin: 10/24/17 03:00 Dose: Not Given Hydrochlorothiazide (Hydrodiuril) 25 mg PO DAILY [facility] Last Admin: 10/24/17 10:07 Dose: 25 mg Losartan Potassium (Cozaar) 100 mg PO DAILY [facility] Last Admin: 10/24/17 10:08 Dose: 100 mg Multivitamins (Hexavitamin) 1 tab PO DAILY [facility] Last Admin: 10/24/17 10:08 Dose: 1 tab Pantoprazole Sodium (Protonix Ec Tab) 40 mg PO DAILY [facility] Last Admin: 10/24/17 10:08 Dose: 40 mg - Labs Labs: 10/24/17 07:45 02/26/18 07:45 Assessment and Plan (1) Chest discomfort Status: Acute
[2017-10-24 13:41] LABS: INR 1.1; PROTHROMBIN TIME 12.9 SECONDS (9.7-12.2)
[2017-10-24] MEDS ORDERED: Verapamil 2 ML ONE (16:26)
[2017-10-24] MEDS ORDERED: Iodixanol 320 MG/ML 200 ML BOTTLE IV ONE (16:27)
[2017-10-24] MEDS ORDERED: Midazolam 2 MG/2 ML VIAL ONE (16:27)
[2017-10-24] MEDS ORDERED: Sodium Chloride 0.9% 500 ML IV SCH (17:00)
[2017-10-24] MEDS ORDERED: Sodium Chloride 0.9% 1,000 ML IV SCH (23:45)
[2017-10-25] MEDS: Albuterol-Ipratrop 3 mg / 0.5 (3 ml) UD INH SCH ×2 (01:34→08:36)
--- NOTE | 2017-10-25 04:52 | CARDCATH ---
PROCEDURE DATE: 10/24/2017 INDICATIONS: Ms. Mary Walter is a 57-year-old female, , with history of hypertension who presented to [facility] with acute onset of chest pain, substernal pressure like sensation, accompanying with episode of dizziness after she was cleaning sikh. She was ruled out for PE with a CT/PE protocol and because of her typical symptoms, she was brought to the chemical laboratory scientist for further evaluation and treatment. PROCEDURES PERFORMED: Left heart catheterization with selective left and right coronary angiogram, left ventricular end-diastolic pressure was noted to be 17 mmHg; 6-Yi left radial arterial access; wristband for hemostasis. ANGIOGRAPHIC FINDINGS: Left main, large sized vessel, bifurcates into LAD and left circumflex coronary artery. Left circumflex is a large-sized vessel that gives rise to two small obtuse marginal branches. LAD is a large-sized vessel with proximal 50% stenosis and gives rise to 2 medium-sized diagonal branches. Mid and distal LAD 20% stenosis, diagonal 0% stenosis, RCA has mid 60% stenosis, distal 0%, PDA and PLV 0%. IMPRESSION: Moderate two-vessel coronary artery disease with normal end-diastolic pressure. RECOMMENDATIONS: Aggressive medical management and risk factor modification. The patient can discharge to home and follow up with Dr. Cox in one week. Continue the patient on aspirin, beta blockers, statin, and nitrates. Bandar Armstrong MD
--- NOTE | 2017-10-25 04:59 | PN ---
DATE: SUBJECTIVE: The patient is a 57-year-old female. The patient was seen and examined on the bedside, looking comfortable. No nausea, vomiting, diarrhea, no hematuria, hematochezia. No swelling of the leg. No chest pain, no palpitation. No headache, no dizziness. No change in the overall status. The patient went for catheterization today. PHYSICAL EXAMINATION VITAL SIGNS: Temperature 97.4, pulse 82, respiratory rate 20, blood pressure 113/80, pulse oximetry 97. HEENT: Head, normocephalic and atraumatic. Eyes, PERRLA. Extraocular muscles intact. Conjunctivae clear. Nose patent. Mucous membrane moist. NECK: Supple. No carotid bruit or thyromegaly. CHEST: Bilaterally symmetrical. HEART: S1 and S2 positive. LUNGS: Clear to auscultation. ABDOMEN: Soft. Bowel sounds present. No organomegaly. EXTREMITIES: No edema. No cyanosis. NEUROLOGIC: The patient is awake and alert. Moving all 4 extremities. No focal deficits. MEDICATIONS: Albuterol, amlodipine, aspirin, hydrochlorothiazide, sodium chloride, losartan, multivitamins, pantoprazole. LABORATORY DATA: White blood cell 6.8, hemoglobin 14.4, hematocrit 42.0, platelets 332. Sodium 135, potassium 3.6, BUN 9, creatinine 0.8, glucose 100. ASSESSMENT AND PLAN: On admission, Mrs. David Hernandez is a 57-year-old female with hypochloremia, angina at rest. The patient went for catheterization. RCA is 50%, LAD proximal 50%, nonobstructive. Medical treatment with aspirin, beta-blockers, statin, and nitrates. Hypertension, getting stable. Chest pain, getting better. Obesity, advised to lose weight. We will continue present treatment with labs. We will follow up. Cheryl Cox MD MTDD
--- NOTE | 2017-10-25 07:26 | HP ---
CHIEF COMPLAINT: Chest pain and shortness of breath. HISTORY OF PRESENT ILLNESS: The patient is a 57-year-old female with history of hypertension and came to the emergency room, complaining of chest pressure that started around 4 p.m. and later the patient had vomiting and dizziness. Denies coughing. No fever. No chills. CAT scan of the chest with contrast showed no pulmonary embolism. The patient has a history of smoking, quit 15 years ago. The patient also states that she never had wheezing or shortness of breath, also complaining of nocturnal snoring and feels tired and sleepy during daytime. The patient has obesity also. PAST MEDICAL HISTORY: Hypertension, hypercholesterolemia, bronchitis, obesity. ALLERGIES: PATIENT IS NOT ALLERGIC WITH ANY MEDICATIONS. HOME MEDICATIONS: Amlodipine, hydrochlorothiazide, Losartan, multivitamins, Protonix. REVIEW OF SYSTEMS: The patient seen and examined at the bedside in the emergency room, looking comfortable. No nausea, vomiting or diarrhea. No hematuria or hematochezia. No swelling of the legs. No chest pain. No palpitation with movement. No headache. No dizziness. No fever or chills. PHYSICAL EXAMINATION VITAL SIGNS: Temperature 98.4, pulse 72, respiratory rate 20, blood pressure 132/77, and pulse oximetry 97%. HEENT: Head normocephalic, atraumatic. Eyes, PERRLA. Extraocular muscles intact. Conjunctivae clear. Nose patent. Mucous membranes moist.. NECK: Supple. No carotid bruits or thyromegaly. CHEST: Bilaterally symmetrical. HEART: S1 and S2 positive. LUNGS: Clear to auscultation. ABDOMEN: Soft. Bowel sounds present. No organomegaly. EXTREMITIES: No edema. No cyanosis. NEUROLOGIC: The patient is awake and alert. Moving all four extremities. No focal deficits. LABORATORY DATA: White blood cells 7.0, hemoglobin 14.6, hematocrit 42.5, platelets 328, sodium 136, potassium 3.5, BUN 10, creatinine 0.8, glucose 99. ASSESSMENT AND PLAN: The patient is a 57-year-old lady with hypokalemia, replaced, came with chest pain, unlike any pulmonary embolism as per Dr. Lucas Aguilar, Cardiology workup pending. Continue aspirin and Lovenox for now. Starting nebulizer treatment because of history of smoking. Echocardiograph. Rule out reflux and continue Protonix. Patient has history of bronchitis, hypertension, former smoker. Cardiology evaluation called with Dr. Bandar Armstrong. Started on aspirin, Losartan, albuterol and Lovenox for DVT prophylaxis. Protonix given. Cardiac enzymes x2 sets done, is less than 0.0120. Will repeat labs, GI and DVT prophylaxis and will follow up. Cheryl Cox MD MTDD
[2017-10-25 08:33] VITALS: TEMP 97.9
[2017-10-25] MEDS: Pantoprazole 40 mg EC Tab PO SCH (10:41)
[2017-10-25] MEDS: Multiple Vitamins Tab PO SCH (10:41)
--- NOTE | 2017-10-25 10:42 | CP.PCM.PN ---
<Oscar Denney - Last Filed: 10/25/17 13:34> Subjective - Date & Time of Evaluation Date of Evaluation: 10/25/17 Time of Evaluation: 10:15 - Subjective Subjective: Subjective: Patient seen and examined at bedside. No acute events overnight. States no complications since cardiac catherization yesterday. Offers no new complaints at this time. Denies fever, chills, chest pain, SOB, and palpitations. 12 point ROS negative except as indicated in HPI. Physical Examination: - Constitutional Appears: NAD - Head Exam Head Exam: ATRAUMATIC, NORMAL INSPECTION, NORMOCEPHALIC - Eye Exam Eye Exam: EOMI, Normal appearance, PERRL Pupil Exam: NORMAL ACCOMODATION, PERRL - ENT Exam ENT Exam: Mucous Membranes Moist, Normal Exam - Neck Exam Neck exam: Positive for: Normal Inspection - Respiratory Exam Respiratory Exam: Clear to Auscultation Bilateral, NORMAL BREATHING PATTERN - Cardiovascular Exam Cardiovascular Exam: REGULAR RHYTHM, RRR, +S1, +S2, Systolic Murmur - GI/Abdominal Exam GI & Abdominal Exam: Normal Bowel Sounds, Soft. absent: Tenderness - Extremities Exam Extremities exam: Positive for: normal inspection - Back Exam Back exam: NORMAL INSPECTION - Neurological Exam Neurological exam: Awake, alert, responds to verbal stimuli, answers questions appropriately, follows commands, and moves extremities past midline - Psychiatric Exam Psychiatric exam: Normal Affect, Normal Mood - Skin Skin Exam: Dry, Normal Color, Warm Assessment and Plan: Patient is a 57 year old female with a past medical history of hypertension who presents for evaluation and treatment of chest pain. Angina at rest - diagnostic cardiac catherization yesterday RCA 60% , LAD proximal 50% non- obstructive - ok for discharge- New medications include aspirin 81mg daily, metoprolol succinate 25mg 1 tablet PO daily, atrovastatin 40mg 1 tablet PO daily Hx of HTN (hypertension) - BP reviewed, trended, and appreciated- controlled with goal SBP between 90- 150mmHG and DBP between 90-100mmHG - continue with amlodipine, HCTZ, and losartan Patient case reviewed with and plan approved by attending physician, Dr. Armstrong. Objective - Vital Signs/Intake and Output Vital Signs (last 24 hours): Temp Pulse Resp BP Pulse Ox 97.9 F 96 H 20 119/65 95 10/25/17 08:31 10/25/17 10:38 10/25/17 08:31 10/25/17 10:38 10/25/17 08:31 Intake and Output: 10/25/17 10/25/17 06:59 18:59 Intake Total 710 Balance 710 - Medications Medications: Current Medications Albuterol/Ipratropium (Duoneb 3 Mg/0.5 Mg (3 Ml) Ud) 3 ml INH RQ6 [facility] Last Admin: 10/25/17 08:36 Dose: Not Given Amlodipine Besylate (Norvasc) 10 mg PO DAILY [facility] Last Admin: 10/25/17 10:41 Dose: 10 mg Aspirin (Aspirin) 325 mg PO DAILY [facility] Last Admin: 10/25/17 10:41 Dose: 325 mg Hydrochlorothiazide (Hydrodiuril) 25 mg PO DAILY [facility] Last Admin: 10/25/17 10:41 Dose: 25 mg Sodium Chloride (Sodium Chloride 0.9%) 1,000 mls @ 50 mls/hr IV .Q20H [facility] Last Admin: 10/24/17 23:51 Dose: 50 mls/hr Losartan Potassium (Cozaar) 100 mg PO DAILY [facility] Last Admin: 10/25/17 10:41 Dose: 100 mg Multivitamins (Hexavitamin) 1 tab PO DAILY [facility] Last Admin: 10/25/17 10:41 Dose: 1 tab Pantoprazole Sodium (Protonix Ec Tab) 40 mg PO DAILY [facility] Last Admin: 10/25/17 10:41 Dose: 40 mg - Labs Labs: 10/24/17 07:45 10/24/17 07:45 PT 12.9 SECONDS (9.7-12.2) H 10/24/17 13:26 INR 1.1 10/24/17 13:26 APTT 32 SECONDS (21-34) 10/24/17 13:26 <Bandar Armstrong - Last Filed: 10/26/17 01:03> Objective - Vital Signs/Intake and Output Vital Signs (last 24 hours): Temp Pulse Resp BP Pulse Ox 97.9 F 86 20 138/88 100 10/25/17 13:30 10/25/17 13:30 10/25/17 13:30 10/25/17 13:30 10/25/17 13:30 Intake and Output: 10/25/17 10/26/17 18:59 06:59 Intake Total 600 Balance 600 - Labs Labs: 10/24/17 07:45 10/24/17 07:45 PT 12.9 SECONDS (9.7-12.2) H 10/24/17 13:26 INR 1.1 10/24/17 13:26 APTT 32 SECONDS (21-34) 10/24/17 13:26 Assessment and Plan (1) Angina at rest Status: Acute (2) HTN (hypertension) Status: Acute (3) Chest pain Status: Acute (4) Chest discomfort Status: Acute Attending/Attestation - Attestation I have personally seen and examined this patient.: Yes I have fully participated in the care of the patient.: Yes I have reviewed all pertinent clinical information, including history, physical exam and plan: Yes
--- NOTE | 2017-10-25 13:12 | CP.PCM.PN ---
Subjective - Date & Time of Evaluation Date of Evaluation: 10/25/17 Time of Evaluation: 13:11 - Subjective Subjective: PT CLEARED FOR D/C BY CARDIO AND DR. MEDEROS. PT TO F/U WITH Marilu MEDEROS IN THE OFFICE WITHIN 7 DAYS (ON 11/02/17). NO NEW RX GIVEN; TO CONTINUE SAME HOME MEDS. NO FURTHER ORDERS. Objective - Vital Signs/Intake and Output Vital Signs (last 24 hours): Temp Pulse Resp BP Pulse Ox 97.9 F 96 H 20 119/65 95 10/25/17 08:31 10/25/17 10:38 10/25/17 08:31 10/25/17 10:38 10/25/17 08:31 Intake and Output: 10/25/17 10/25/17 06:59 18:59 Intake Total 710 Balance 710 - Medications Medications: Current Medications Albuterol/Ipratropium (Duoneb 3 Mg/0.5 Mg (3 Ml) Ud) 3 ml INH RQ6 [facility] Last Admin: 10/25/17 08:36 Dose: Not Given Amlodipine Besylate (Norvasc) 10 mg PO DAILY [facility] Last Admin: 10/25/17 10:41 Dose: 10 mg Aspirin (Aspirin) 325 mg PO DAILY [facility] Last Admin: 10/25/17 10:41 Dose: 325 mg Hydrochlorothiazide (Hydrodiuril) 25 mg PO DAILY [facility] Last Admin: 10/25/17 10:41 Dose: 25 mg Sodium Chloride (Sodium Chloride 0.9%) 1,000 mls @ 50 mls/hr IV .Q20H [facility] Last Admin: 10/24/17 23:51 Dose: 50 mls/hr Losartan Potassium (Cozaar) 100 mg PO DAILY [facility] Last Admin: 10/25/17 10:41 Dose: 100 mg Multivitamins (Hexavitamin) 1 tab PO DAILY [facility] Last Admin: 10/25/17 10:41 Dose: 1 tab Pantoprazole Sodium (Protonix Ec Tab) 40 mg PO DAILY [facility] Last Admin: 10/25/17 10:41 Dose: 40 mg - Labs Labs: 10/24/17 07:45 10/24/17 07:45 PT 12.9 SECONDS (9.7-12.2) H 10/24/17 13:26 INR 1.1 02/26/18 13:26 APTT 32 SECONDS (21-34) 10/24/17 13:26
--- NOTE | 2017-10-25 13:59 | CARD ---
APPROVED REPORT EKG Measurement Heart [id number] <Conclusion> Normal sinus rhythm Normal ECG
[2017-10-25 14:03] VITALS: BP 138/88; PULSE 86; O2SAT 100
--- NOTE | 2017-10-26 12:20 | DS ---
CHIEF COMPLAINT: Chest pain. HISTORY OF PRESENT ILLNESS: Ms. David Hernandez is a 57 years female with past medical history of hypertension, came to the emergency room complaining of chest pain that is like pressure with episode of vomiting and dizziness. No fever. No chills. CAT scan of the chest with contrast showed no pulmonary embolism. This patient has a history of smoking, quit 15 years ago. The patient states that she never had wheezing or shortness of breath. No history of asthma. Readmitted the patient, consult called by Dr. Bandar Armstrong. He did catheterization and offered medical treatment. The patient discharged home after clearing from the disaster recovery specialist point of view Dr. Cox and Dr. Armstrong. PAST MEDICAL HISTORY: Hypertension, hypercholesterolemia, bronchitis, obesity. ALLERGIES: PATIENT IS NOT ALLERGIC WITH ANY MEDICATIONS. HOME MEDICATIONS: Amlodipine, hydrochlorothiazide, Losartan and multivitamins. REVIEW OF SYSTEMS: The patient was seen and examined at bedside, looking comfortable. No nausea, vomiting, or diarrhea. No hematuria or hematochezia. No swelling of the legs. No chest pain. No palpitation. No headache. No dizziness. No acute event overnight happened. No more chest pain. No complications since cardiac catheterization. A 12-point review of systems negative except as indicated as above. PHYSICAL EXAMINATION: VITAL SIGNS: Temperature 97.9, pulse 96, respiratory rate 20, blood pressure 119/55, and pulse oximetry 95%. HEENT: Head normocephalic, atraumatic. Eyes, PERRLA. Extraocular muscles intact. Conjunctivae clear. Nose patent. Mucous membranes moist. NECK: Supple. No carotid bruits or thyromegaly. CHEST: Bilaterally symmetrical. HEART: S1 and S2 positive. LUNGS: Clear to auscultation. ABDOMEN: Soft. Bowel sounds present. No organomegaly. EXTREMITIES: No edema. No cyanosis. NEUROLOGIC: The patient is awake and alert. Moving all four extremities. No focal deficits. LABORATORY DATA: White blood cells 6.8, hemoglobin 14.0, hematocrit 42.0, platelets 332, sodium 135, potassium 3.6, BUN 9, creatinine 0.8, glucose 100. ASSESSMENT AND PLAN: Ms. David Hernandez is a 57 years old lady came with chest pain, cath is done, has hypochloremia, history of hypertension. Seen by Dr. Lucas Aguilar, communications tower climber to rule out pulmonary embolism. Chest discomfort, negative for pulmonary emboli, no respiratory distress. Obesity. The patient went for catheterization, showed RCA 50%, LAD proximal 50% , nonobstructive. Medical treatment, aspirin, beta blockers, statin and nitrates. Hypertension is stable. Obesity, asked to lose weight. Discussion done with Dr. Bandar Armstrong. Discharged home today. Currently, no medications. Follow up with Dr. Bandar Armstrong's office and my office. We will follow. Cheryl Cox MD
--- NOTE | 2017-10-26 14:04 | CARD ---
APPROVED REPORT EKG Measurement Heart [id number] <Conclusion> Sinus tachycardia Possible Left atrial enlargement Nonspecific ST and T wave abnormality Abnormal ECG
== END 2017-10-25 13:46 | disposition home or self-care (01) ==
LOC: C.ER 20:28 → C.9E 10-23 00:31 → C.6T 10-23 16:51
PROVIDERS: ADMIT Internal Medicine; ATTEND Internal Medicine
DX: R07.89 Other chest pain (principal); E66.9 Obesity, unspecified; E78.00 Pure hypercholesterolemia, unspecified; E87.8 Other disorders of electrolyte and fluid balance, not elsewhere classified; I10 Essential (primary) hypertension; I25.119 Atherosclerotic heart disease of native coronary artery with unspecified angina pectoris; Z87.891 Personal history of nicotine dependence; Z68.41 Body mass index [BMI] 40.0-44.9, adult
CPT/HCPCS: 36415; 71045; 71275; 80048; 80053; 80061; 81001; 82948; 83036; 83880; 84443; 84484; 85025; 85027; 85378; 85610; 85730; 93005; 93452; 96360; 96372; 96374; 99285; C1769; C1887; G0378; J1200; J1644; J1650; J2250; J2405; J2930; J3010; J7040; Q9966; Q9967

== ENCOUNTER 2018-01-21 01:34 | Observation (INO) | payer MEDICAID ==
[2018-01-21 02:56] LABS: BASO % 0.7 % (0.0-2.0); EOS # 0.1 K/uL (0.0-0.7); HEMOGLOBIN 14.1 g/dL (11.0-16.0); LYMPH # 2.3 K/uL (1.0-4.3); LYMPH % 31.7 % (20.0-40.0); MEAN CELL VOLUME 87.2 fL (81.0-99.0); MEAN CORPUSCULAR HEMOGLOBIN 31.1 pg (27.0-31.0); MEAN CORPUSCULAR HGB CONC 35.6 g/dL (33.0-37.0); MEAN PLATELET VOLUME 7.9 fL (7.2-11.7); MONO # 0.6 K/uL (0.0-0.8); MONO % 7.7 % (0.0-10.0); NEUT # 4.3 K/uL (1.8-7.0); NEUT % 57.9 % (50.0-75.0); RBC 4.56 Mil/uL (3.80-5.20); WHITE BLOOD COUNT 7.4 K/uL (4.8-10.8)
[2018-01-21 03:07] LABS: ALB/GLOB RATIO 1.1 (1.0-2.1); ALBUMIN 4.1 g/dL (3.5-5.0); ALT/SGPT 28 U/L (9-52); AST/SGOT 21 U/L (14-36); BLOOD UREA NITROGEN 12 mg/dL (7-17); CALCIUM 9.8 mg/dl (8.6-10.4); GFR AFRICAN-AMERICAN > 60; GFR NON-AFRICAN AMERICAN > 60; LIPASE 124 U/L (23-300)
[2018-01-21] MEDS ORDERED: Potassium Chloride 20 mEq ER Tab PO STA (03:22)
[2018-01-21] MEDS ORDERED: Potassium Chloride 20 mEq ER Tab PO ONE (03:30)
--- NOTE | 2018-01-21 05:25 | C.PDOC ---
Time Seen by Provider: 01/21/18 02:12 Chief Complaint (Nursing): Chest Pain History Per: Patient Onset/Duration Of Symptoms: Days (few), Intermittent Episodes Current Symptoms Are (Timing): Still Present Severity: Moderate Quality: "Pain" Modifying Factors: Other Indicated Below Additional History Per: Prior Records Past Medical History Reviewed: Historical Data, Nursing Documentation, Vital Signs Vital Signs: Last Vital Signs Temp 98.0 F 01/21/18 04:37 Pulse 82 01/21/18 04:37 Resp 16 01/21/18 04:37 BP 121/77 01/21/18 04:37 Pulse Ox 98 01/21/18 05:25 - Medical History PMH: Bronchitis, CAD, HTN, Hypercholesterolemia Family History: States: Unknown Family Hx - Social History Hx Alcohol Use: No Hx Substance Use: No - Immunization History Hx Tetanus Toxoid Vaccination: No Hx Influenza Vaccination: No Hx Pneumococcal Vaccination: No Review Of Systems Except As Marked, All Systems Reviewed And Found Negative. Constitutional: Negative for: Fever, Weakness Cardiovascular: Positive for: Chest Pain Respiratory: Negative for: Hemoptysis Gastrointestinal: Negative for: Vomiting Musculoskeletal: Negative for: Neck Pain Skin: Negative for: Rash Neurological: Negative for: Weakness, Numbness Physical Exam - Physical Exam Appears: Non-toxic, No Acute Distress Skin: Normal Color, Warm, Dry, No Rash Head: Atraumatic, Normacephalic Eye(s): bilateral: Normal Inspection, PERRL, EOMI Neck: Normal ROM, Supple Chest: Symmetrical, No Deformity, No Tenderness Cardiovascular: Rhythm Regular Respiratory: Normal Breath Sounds, No Accessory Muscle Use Gastrointestinal/Abdominal: Soft, No Tenderness Back: No CVA Tenderness Extremity: Normal ROM, No Pedal Edema, No Calf Tenderness Neurological/Psych: Oriented x3, Normal Motor, Normal Sensation ED Course And Treatment - Laboratory Results Result Diagrams: 01/21/18 02:53 01/21/18 02:53 Interpretation Of Abnormal: Mild hypokalemia ECG: Interpreted By Me, Viewed By Me ECG Rhythm: Sinus Rhythm, Nonspecific Changes ECG Interpretation: No Acute Changes Rate From EC O2 Sat by Pulse Oximetry: 98 Pulse Ox Interpretation: Normal - Radiology CXR: Interpreted by Me, Viewed By Me CXR Interpretation: Yes: No Acute Disease - Physician Consult Information Physician Contacted: Linda Card (PMD) Outcome Of Conversation: She wants pt to be admitted under on-call physician's service. Progress - Interventions Interventions:: Observation - Medications Administered Oral: Aspirin, Other (KCl) - Data Reviewed Data Reviewed: Lab, Diagnostic imaging, EKG, Old records - Patient Status Patient status: Mostly improved - Continuity of Care Discussed patient case with:: Patient, ED Nurse Disposition Discussed With : Ness Fischer Comment: She accepted pt on her service and gave admitting orders to the nurse. Doctor Will See Patient In The: Hospital Counseled Patient/Family Regarding: Studies Performed, Diagnosis - Disposition Disposition: HOSPITALIZED Disposition Time: 05:45 Condition: FAIR - Clinical Impression Clinical Impression: Left sided chest pain
[2018-01-21] MEDS ORDERED: VALSARTAN PO SCH (10:00)
[2018-01-21] MEDS ORDERED: Home Med 1 UNIT (Multivitamin [Multivitamins] 1 EACH) PO SCH (10:00)
[2018-01-21] MEDS ORDERED: HYDROCHLOROTHIAZIDE PO SCH (10:00)
[2018-01-21] MEDS ORDERED: Enoxaparin 40 mg Syringe SC SCH (10:00)
[2018-01-21] MEDS: Enoxaparin 40 mg Syringe SC SCH (10:33)
[2018-01-21 11:27] LABS: CK-MB 0.54 ng/mL (0.0-3.38)
--- NOTE | 2018-01-21 11:40 | CP.PCM.HP ---
History of Present Illness - History of Present Illness History of Present Illness: pt had pulling feeling l side chest came to er hx of cad htn hyperlipedeamia Present on Admission - Present on Admission Any Indicators Present on Admission: No Review of Systems - Review of Systems Systems not reviewed;Unavailable: Acuity of Condition - Constitutional Constitutional: As Per HPI - EENT Eyes: As Per HPI Ears: As Per HPI Nose/Mouth/Throat: As Per HPI - Breasts Breasts: As Per HPI - Cardiovascular Cardiovascular: Chest Pain, Chest Pain at Rest, Chest Pain with Activity, Dyspnea Additional comments: had c cth befpr positive 2 cronarys narro - Respiratory Respiratory: Dyspnea on Exertion - Gastrointestinal Gastrointestinal: Constipation - Genitourinary Genitourinary: As Per HPI - Reproductive: Female Reproductive:Female: As Per HPI - Menstruation Menstruation: As Per HPI - Musculoskeletal Musculoskeletal: As Per HPI - Integumentary Integumentary: As Per HPI - Neurological Neurological: As Per HPI - Psychiatric Psychiatric: As Per HPI - Endocrine Endocrine: As Per HPI - Hematologic/Lymphatic Hematologic: As Per HPI Past Patient History - Infectious Disease Hx of Infectious Diseases: None - Tetanus Immunizations Tetanus Immunization: Unknown - Past Medical History & Family History Past Medical History?: Yes - Past Social History Smoking Status: Former Smoker - CARDIAC Hx Hypercholesterolemia: Yes Hx Hypertension: Yes - PULMONARY Hx Bronchitis: Yes - NEUROLOGICAL Hx Neurological Disorder: No - HEENT Hx HEENT Problems: No - RENAL Hx Chronic Kidney Disease: No - ENDOCRINE/METABOLIC Hx Endocrine Disorders: No - HEMATOLOGICAL/ONCOLOGICAL Hx Blood Disorders: No - INTEGUMENTARY Hx Dermatological Problems: No - MUSCULOSKELETAL/RHEUMATOLOGICAL Hx Musculoskeletal Disorders: No Hx Falls: No - GASTROINTESTINAL Hx Gastrointestinal Disorders: No - GENITOURINARY/GYNECOLOGICAL Hx Genitourinary Disorders: No - PSYCHIATRIC Hx Substance Use: No - SURGICAL HISTORY Hx Surgeries: No - ANESTHESIA Hx Anesthesia: No Meds Allergies/Adverse Reactions: Allergies Allergy/AdvReac Type Severity Reaction Status Date / Time No Known Allergies Allergy Verified 01/21/18 01:57 Physical Exam - Constitutional Appears: Non-toxic - Head Exam Head Exam: ATRAUMATIC - Eye Exam Eye Exam: Normal appearance Pupil Exam: NORMAL ACCOMODATION - ENT Exam ENT Exam: Mucous Membranes Moist - Neck Exam Neck exam: Positive for: Normal Inspection - Respiratory Exam Respiratory Exam: Clear to Auscultation Bilateral - Cardiovascular Exam Cardiovascular Exam: REGULAR RHYTHM Additional comments: ekg abnormal iscemia - GI/Abdominal Exam GI & Abdominal Exam: Distended - Rectal Exam Rectal Exam: Deferred - Exam Exam: NORMAL INSPECTION - Extremities Exam Extremities exam: Positive for: normal inspection - Back Exam Back exam: NORMAL INSPECTION - Neurological Exam Neurological exam: Alert, Normal Gait, Oriented x3 - Psychiatric Exam Psychiatric exam: Normal Affect Results - Vital Signs Recent Vital Signs: Last Vital Signs Temp 97.9 F 01/21/18 07:05 Pulse 76 01/21/18 08:00 Resp 20 01/21/18 07:05 BP 101/68 01/21/18 07:05 Pulse Ox 97 01/21/18 07:05 - Labs Result Diagrams: 01/21/18 02:53 01/21/18 02:53 Labs: Laboratory Results - last 24 hr 01/21/18 01/21/18 01/21/18 02:53 02:53 10:55 WBC 7.4 RBC 4.56 Hgb 14.1 Hct 39.7 MCV 87.2 MCH 31.1 H MCHC 35.6 RDW 13.0 Plt Count 259 MPV 7.9 Neut % (Auto) 57.9 Lymph % (Auto) 31.7 Gage % (Auto) 7.7 Eos % (Auto) 2.0 Baso % (Auto) 0.7 Neut # (Auto) 4.3 Lymph # (Auto) 2.3 Gage # (Auto) 0.6 Eos # (Auto) 0.1 Baso # (Auto) 0.0 Sodium 138 Potassium 2.9 L Chloride 99 Carbon Dioxide 27 Anion Gap 16 BUN 12 Creatinine 0.8 Est GFR ( Amer) > 60 Est GFR (Non-Af Amer) > 60 Random Glucose 104 Calcium 9.8 Total Bilirubin 1.2 AST 21 ALT 28 Alkaline Phosphatase 95 Total Creatine Kinase 193 H CK-MB (Mass) 0.54 Troponin I < 0.0120 < 0.0120 Total Protein 7.8 Albumin 4.1 Globulin 3.7 Albumin/Globulin Ratio 1.1 Lipase 124 Assessment & Plan - Assessment and Plan (Free Text) Assessment: chest pain cad hyperlipedeamia Plan: dr chadwick cardiology consult and as per orders - Date & Time Date: 01/21/18 Time: 11:44
--- NOTE | 2018-01-21 12:03 | RAD ---
PROCEDURE: CHEST RADIOGRAPH, 1 VIEW HISTORY: Left chest pain COMPARISON: Frontal chest radiograph 10/22/2017. FINDINGS: LUNGS: No acute pulmonary disease appreciated bilaterally. PLEURA: No pneumothorax or pleural fluid seen. CARDIOVASCULAR: Normal. OSSEOUS STRUCTURES: No significant abnormalities. VISUALIZED UPPER ABDOMEN: Normal. OTHER FINDINGS: None. IMPRESSION: No interval acute cardiopulmonary disease appreciated.
[2018-01-21 14:39] LABS: BLOOD UREA NITROGEN 11 mg/dL (7-17); CALCIUM 9.6 mg/dl (8.6-10.4); GFR AFRICAN-AMERICAN > 60; GFR NON-AFRICAN AMERICAN > 60; HDL CHOLESTEROL 37 mg/dL (30-70)
[2018-01-21 14:49] LABS: LDL CHOLESTEROL 61 mg/dL (0-129)
[2018-01-21 19:58] LABS: CK-MB 0.41 ng/mL (0.0-3.38)
[2018-01-22 00:58] VITALS: RESP 20; O2SAT 98
[2018-01-22 07:59] VITALS: BP 125/81; PULSE 66; TEMP 97.7
[2018-01-22 08:22] LABS: BLOOD UREA NITROGEN 11 mg/dL (7-17); CALCIUM 9.5 mg/dl (8.6-10.4); GFR AFRICAN-AMERICAN > 60; GFR NON-AFRICAN AMERICAN > 60
[2018-01-22] MEDS ORDERED: Multiple Vitamins Tab PO SCH (10:00)
[2018-01-22] MEDS: Enoxaparin 40 mg Syringe SC SCH (10:19)
--- NOTE | 2018-01-22 11:27 | CP.PCM.CON ---
History of Present Illness - History of Present Illness History of Present Illness: I was asked to evaluate patient by Dr Fischer. Patient is a 57 year old female with PMH HTN, hypercholestrolemia, CAD who presents with chest pain. The patient had a cardiac cath in September revealing a 60% mid RCA. She was managed medically and did well. She recently complained of intermittent substernal chest pain, which was worse with exertion. She initally thought symptoms were due to statin therapy. She had mild associated dyspnea. She has no current chest pain. Review of Systems - Constitutional Constitutional: absent: As Per HPI, Anorexia, Chills, Daytime Sleepiness, Excessive Sweating, Fatigue, Fever, Frequent Falls, Headache, Increased Appetite , Lethargy, Malaise, Night Sweats, Snoring, Sleep Apnea, Weight Gain, Weight Loss, Weakness, Other - EENT Eyes: absent: As Per HPI, Blind Spots, Blurred Vision, Change in Vision, Decreased Night Vision, Diplopia, Discharge, Dry Eye, Exophthalmos, Floaters, Irritation, Itchy Eyes, Loss of Peripheral Vision, Pain, Photophobia, Requires Corrective Lenses, Sees Flashes, Spots in Vision, Tunnel Vision, Other Visual Disturbances, Loss of Vision, Other Ears: absent: As Per HPI, Decreased Hearing, Ear Discharge, Ear Pain, Tinnitus, Abnormal Hearing, Disequilibrium, Dizziness, Other Nose/Mouth/Throat: absent: As Per HPI, Epistaxis, Nasal Congestion, Nasal Discharge, Nasal Obstruction, Nasal Trauma, Nose Pain, Post Nasal Drip, Sinus Pain, Sinus Pressure, Bleeding Gums, Change in Voice, Dental Pain, Dry Mouth, Dysphagia, Halitosis, Hoarsness, Lip Swelling, Mouth Lesions, Mouth Pain, Odynophagia, Sore Throat, Throat Swelling, Tongue Swelling, Facial Pain, Neck Pain, Neck Mass, Other - Cardiovascular Cardiovascular: Chest Pain - Respiratory Respiratory: Dyspnea - Gastrointestinal Gastrointestinal: absent: As Per HPI, Abdominal Pain, Belching, Bloating, Change in Bowel Habits, Change in Stool Character, Coffee Ground Emesis, Constipation, Cramping, Diarrhea, Dyspepsia, Dysphagia, Early Satiety, Excessive Flatus, Fecal Incontinence, Heartburn, Hematemesis, Hematochezia, Loose Stools, Melena, Nausea, Odynophagia, Temesmus, Vomiting, Other - Genitourinary Genitourinary: absent: As Per HPI, Change in Urinary Stream, Difficulty Urinating, Dysuria, Flank Pain, Hematuria, Pyuria, Nocturia, Urinary Incontinence, Urinary Frequency, Urinary Hesitance, Urinary Urgency, Voiding Freq/Small Amts, Freq UTI, Hx Renal/Bladder Calculi, Hx /Renal Surgery, Bladder Distension, Other - Musculoskeletal Musculoskeletal: absent: As Per HPI, Abnormal Gait, Arthralgias, Atrophy, Back Pain, Deformity, Joint Swelling, Limited Range of Motion, Loss of Height, Muscle Cramps, Muscle Weakness, Myalgias, Neck Pain, Numbness, Radiating Pain into Limb, Stiffness, Tingling, Other - Integumentary Integumentary: absent: As Per HPI, Acne, Alopecia, Bleeding Lesions, Change in Hair, Change in Nails, Change in Pigmentation, Changing Lesions, Dry Skin, Erythema, Furuncle, Hirsutism, Lesions, New Lesions, Non-Healing Lesions, Photosensitivity, Pruritus, Rash, Skin Pain, Skin Ulcer, Sores, Striae, Swelling , Unusual Bruising, Wounds, Jaundice, Other - Neurological Neurological: absent: As Per HPI, Abnormal Gait, Abnormal Hearing, Abnormal Movements, Abnormal Speech, Behavioral Changes, Burning Sensations, Confusion, Convulsions, Disequilibrium, Dizziness, Numbness, Focal Weakness, Frequent Falls , Headaches, Lack of Coordination, Loss of Vision, Memory Loss, Paresthesias, Radicular Pain, Restless Legs, Sensory Deficit, Syncope, Tingling, Tremor, Vertigo, Weakness, Other Visual Disturbances, Other - Psychiatric Psychiatric: absent: As Per HPI, Abnormal Sleep Pattern, Anhedonia, Anxiety, Auditory Hallucinations, Behavioral Changes, Change in Appetite, Change in Libido, Confusion, Depression, Difficulty Concentrating, Hallucinations, Homicidal Ideation, Hopelessness, Irritability, Memory Loss, Mood Swings, Panic Attacks, Paranoia, Suicidal Ideation, Visual Hallucinations, Tactile Hallucinations, Other - Endocrine Endocrine: absent: As Per HPI, Change in Body Appearance, Change in Libido, Cold Intolorance, Deepening of Voice, Excessive Sweating, Fatigue, Flushing, Heat Intolorance, Increase in Ring/Shoe/Hat Size, Palpitations, Polydipsia, Polyphagia, Polyuria, Other - Hematologic/Lymphatic Hematologic: absent: As Per HPI, Easy Bleeding, Easy Bruising, Lymphadenopathy, Other Past Patient History - Infectious Disease Hx of Infectious Diseases: None - Tetanus Immunizations Tetanus Immunization: Unknown - Past Medical History & Family History Past Medical History?: Yes - Past Social History Smoking Status: Former Smoker - CARDIAC Hx Hypercholesterolemia: Yes Hx Hypertension: Yes - PULMONARY Hx Bronchitis: Yes - NEUROLOGICAL Hx Neurological Disorder: No - HEENT Hx HEENT Problems: No - RENAL Hx Chronic Kidney Disease: No - ENDOCRINE/METABOLIC Hx Endocrine Disorders: No - HEMATOLOGICAL/ONCOLOGICAL Hx Blood Disorders: No - INTEGUMENTARY Hx Dermatological Problems: No - MUSCULOSKELETAL/RHEUMATOLOGICAL Hx Musculoskeletal Disorders: No Hx Falls: No - GASTROINTESTINAL Hx Gastrointestinal Disorders: No - GENITOURINARY/GYNECOLOGICAL Hx Genitourinary Disorders: No - PSYCHIATRIC Hx Substance Use: No - SURGICAL HISTORY Hx Surgeries: No - ANESTHESIA Hx Anesthesia: No Meds Allergies/Adverse Reactions: Allergies Allergy/AdvReac Type Severity Reaction Status Date / Time No Known Allergies Allergy Verified 01/21/18 01:57 - Medications Medications: Current Medications Amlodipine Besylate (Norvasc) 10 mg PO DAILY [facility] Last Admin: 01/22/18 10:20 Dose: 10 mg Aspirin (Aspirin) 325 mg PO DAILY [facility] Last Admin: 01/22/18 10:18 Dose: 325 mg Enoxaparin Sodium (Lovenox) 40 mg SC DAILY [facility] Last Admin: 01/22/18 10:19 Dose: 40 mg Hydrochlorothiazide (Hydrodiuril) 25 mg PO DAILY [facility] Last Admin: 01/22/18 10:18 Dose: 25 mg Losartan Potassium (Cozaar) 100 mg PO DAILY [facility] Last Admin: 01/22/18 10:19 Dose: Not Given Multivitamins (Hexavitamin) 1 tab PO DAILY [facility] Last Admin: 01/22/18 10:18 Dose: 1 tab Rosuvastatin Calcium (Crestor) 10 mg PO [facility] Last Admin: 01/21/18 21:16 Dose: 10 mg Physical Exam - Constitutional Appears: Non-toxic - Head Exam Head Exam: NORMAL INSPECTION - Eye Exam Eye Exam: Normal appearance - ENT Exam ENT Exam: Mucous Membranes Moist - Neck Exam Neck exam: Positive for: Normal Inspection - Respiratory Exam Respiratory Exam: NORMAL BREATHING PATTERN - Cardiovascular Exam Cardiovascular Exam: REGULAR RHYTHM - GI/Abdominal Exam GI & Abdominal Exam: Normal Bowel Sounds - Rectal Exam Rectal Exam: Deferred - Extremities Exam Extremities exam: Negative for: pedal edema - Back Exam Back exam: NORMAL INSPECTION - Neurological Exam Neurological exam: Alert, Oriented x3 - Psychiatric Exam Psychiatric exam: Normal Affect - Skin Skin Exam: Normal Color Results - Vital Signs Recent Vital Signs: Last Vital Signs Temp 97.7 F 01/22/18 07:00 Pulse 66 01/22/18 08:03 Resp 20 01/22/18 07:00 BP 125/81 01/22/18 07:00 Pulse Ox 98 01/22/18 00:00 - Labs Result Diagrams: 01/21/18 02:53 01/22/18 08:01 Labs: Laboratory Results - last 24 hr 01/21/18 01/21/18 01/21/18 10:55 14:14 19:27 Sodium 136 Potassium 4.4 Chloride 99 Carbon Dioxide 24 Anion Gap 18 BUN 11 Creatinine 0.7 Est GFR ( Amer) > 60 Est GFR (Non-Af Amer) > 60 Random Glucose 81 Calcium 9.6 Total Creatine Kinase 183 H CK-MB (Mass) 0.54 0.41 Troponin I < 0.0120 < 0.0120 Triglycerides 73 D Cholesterol 135 LDL Cholesterol Direct 61 HDL Cholesterol 37 01/22/18 08:01 Sodium 142 Potassium 3.3 L Chloride 100 Carbon Dioxide 29 Anion Gap 16 BUN 11 Creatinine 0.8 Est GFR ( Amer) > 60 Est GFR (Non-Af Amer) > 60 Random Glucose 95 Calcium 9.5 Total Creatine Kinase CK-MB (Mass) Troponin I Triglycerides Cholesterol LDL Cholesterol Direct HDL Cholesterol - EKG Data EKG Interpreted by: Myself EKG shows normal: Sinus rhythm Assessment & Plan (1) Chest pain Assessment and Plan: patient has ruled out for myocardial infarction. Patient has moderate CAD by angiogram. I will schedule patient for outpatient stress test to evaluate for ischemia in the territory of the RCA. Status: Acute (2) CAD (coronary artery disease) Assessment and Plan: ASA therapy Status: Acute (3) HTN (hypertension) Assessment and Plan: blood pressure control Status: Acute
[2018-01-22] MEDS ORDERED: Potassium Chloride 20 mEq ER Tab PO ONE (12:09)
--- NOTE | 2018-01-22 12:14 | CP.PCM.PN ---
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 dr montelongo will do stress test out ot [facility] for discharge Objective - Vital Signs/Intake and Output Vital Signs (last 24 hours): Temp Pulse Resp BP Pulse Ox 97.7 F 66 20 125/81 98 01/22/18 07:00 01/22/18 08:03 01/22/18 07:00 01/22/18 07:00 01/22/18 00:00 - Medications Medications: Current Medications Amlodipine Besylate (Norvasc) 10 mg PO DAILY [facility] Last Admin: 01/22/18 10:20 Dose: 10 mg Aspirin (Aspirin) 325 mg PO DAILY [facility] Last Admin: 01/22/18 10:18 Dose: 325 mg Enoxaparin Sodium (Lovenox) 40 mg SC DAILY [facility] Last Admin: 01/22/18 10:19 Dose: 40 mg Hydrochlorothiazide (Hydrodiuril) 25 mg PO DAILY [facility] Last Admin: 01/22/18 10:18 Dose: 25 mg Losartan Potassium (Cozaar) 100 mg PO DAILY [facility] Last Admin: 01/22/18 10:19 Dose: Not Given Multivitamins (Hexavitamin) 1 tab PO DAILY [facility] Last Admin: 01/22/18 10:18 Dose: 1 tab Potassium Chloride (K-Dur 20 Meq Er Tab) 40 meq PO ONCE ONE Stop: 01/22/18 12:10 Rosuvastatin Calcium (Crestor) 10 mg PO [facility] Last Admin: 01/21/18 21:16 Dose: 10 mg - Labs Labs: 01/21/18 02:53 01/22/18 08:01 - Constitutional Appears: Non-toxic - Head Exam Head Exam: ATRAUMATIC - Eye Exam Eye Exam: Normal appearance Pupil Exam: NORMAL ACCOMODATION - ENT Exam ENT Exam: Mucous Membranes Moist - Neck Exam Neck Exam: Full ROM - Respiratory Exam Respiratory Exam: NORMAL BREATHING PATTERN - Cardiovascular Exam Cardiovascular Exam: REGULAR RHYTHM - GI/Abdominal Exam GI & Abdominal Exam: Normal Bowel Sounds - Rectal Exam Rectal Exam: NORMAL INSPECTION - Exam Exam: NORMAL INSPECTION - Extremities Exam Extremities Exam: Normal Inspection - Back Exam Back Exam: NORMAL INSPECTION - Neurological Exam Neurological Exam: Alert, Normal Gait, Oriented x3 - Psychiatric Exam Psychiatric exam: Normal Affect - Skin Skin Exam: Normal Color Assessment and Plan - Assessment and Plan (Free Text) Assessment: chest pain cad stable will d/c home cont all med and fu by dr montelongo Plan: stress test as outpt cont all med d/c today
== END 2018-01-22 14:22 | disposition home or self-care (01) ==
LOC: C.ER 01:34 → C.9E 05:46 → C.5S 07:21
PROVIDERS: ADMIT Internal Medicine; ATTEND Internal Medicine
DX: R07.9 Chest pain, unspecified (principal); E78.00 Pure hypercholesterolemia, unspecified; I10 Essential (primary) hypertension; I25.10 Atherosclerotic heart disease of native coronary artery without angina pectoris; Z87.891 Personal history of nicotine dependence
CPT/HCPCS: 36415; 71045; 80048; 80053; 80061; 83690; 84484; 85025; 96372; 99285; G0378; J1650

== ENCOUNTER 2018-07-22 18:29 | Emergency (ER) | payer MEDICAID ==
--- NOTE | 2018-07-22 20:04 | C.PDOC ---
History Of Present Illness 57 y/o female pt presents to the ER complaining of left shoulder pain. Pt was concerned and decided to visit ER. Pt reports pain is reproducible on palpation and worse with movement. She denies nausea, fever, chills and vomiting. Time Seen by Provider: 07/22/18 20:03 Chief Complaint (Nursing): Upper Extremity Problem/Injury History Per: Patient History/Exam Limitations: no limitations Onset/Duration Of Symptoms: Hrs Current Symptoms Are (Timing): Still Present Quality: "Pain" Severity: Moderate Pain Scale Rating Of: 4 Past Medical History Reviewed: Historical Data, Nursing Documentation, Vital Signs Vital Signs: Last Vital Signs Temp 98.3 F 07/22/18 18:39 Pulse 86 07/22/18 18:39 Resp 18 07/22/18 18:39 BP 141/88 07/22/18 18:39 Pulse Ox 98 07/22/18 18:39 - Medical History PMH: Bronchitis, CAD, HTN, Hypercholesterolemia Family History: States: No Known Family Hx - Social History Hx Alcohol Use: No Hx Substance Use: No - Immunization History Hx Tetanus Toxoid Vaccination: No Hx Influenza Vaccination: No Hx Pneumococcal Vaccination: No Review Of Systems Constitutional: Negative for: Fever, Chills Gastrointestinal: Negative for: Nausea, Vomiting Musculoskeletal: Positive for: Shoulder Pain (left; worse on movement and palpation ) Physical Exam - Physical Exam Appears: Non-toxic, No Acute Distress Skin: Warm, Dry Head: Normacephalic Oral Mucosa: Moist Neck: Trachea Midline, Supple Cardiovascular: Rhythm Regular Respiratory: No Rales, No Rhonchi, No Wheezing, Other (speaking in full sentences) Gastrointestinal/Abdominal: Soft, No Tenderness, Other (obses) Extremity: Normal ROM (x4), Tenderness (left shoulder reproducible tenderness), No Deformity, No Swelling, Other (left shoulder: pain with movement; no crepitus ) Pulses: Left Radial: Normal Neurological/Psych: Oriented x3 Gait: Steady ED Course And Treatment - Laboratory Results Result Diagrams: 07/22/18 20:49 07/22/18 20:49 ECG: Interpreted By Me, Viewed By Me ECG Rhythm: Sinus Rhythm (79), Nonspecific Changes O2 Sat by Pulse Oximetry: 98 (RA) Pulse Ox Interpretation: Normal Progress Note: Impression: Left shoulder pain. Plans: -- EKG. -- chem labs. -- blood work. -- aspirin. -- CXR Reevaluation Time: 21:23 Reassessment Condition: Improved Medical Decision Making Medical Decision Making: I considered the following diagnoses: acute coronary syndrome, pulmonary embolism, lower respiratory infection, aortic dissection/aneurysm, pneumothorax, pericarditis, esophagitis/GERD, zoster and esophageal rupture but found them to be unlikely based on the history, physical exam, and diagnostics. My conclusions regarding the unlikely diagnoses were based on: the absence of significant EKG abnormalities, the lack of suggestive x-ray findings, the absence of significant abnormalities on cardiac monitoring, the absence of asymmetric pulses. Pt feels fine and wants to go home. Will follow up with her doctor and will return iof symptoms recur Upon provider reevaluation patient is feeling better, is medically stable, and requires no further treatment in the ED at this time. Patient will be discharged home with Rx for naproxen . Counseling was provided and all questions were answered regarding diagnosis and need for follow up with dr willard. There is agreement to discharge plan. Return if symptoms persist or worsen. Disposition Counseled Patient/Family Regarding: Studies Performed, Diagnosis, Need For Followup, Rx Given - Disposition Referrals: Linda Card MD [Staff Provider] - Disposition: HOME/ ROUTINE Disposition Time: 20:03 Condition: FAIR Additional Instructions: Please return if symptoms recur Prescriptions: Naproxen [Naprosyn] 1 tab PO BID PRN #25 tab PRN Reason: Pain Instructions: Shoulder Pain (DC) Forms: [facility] (Maori) - Clinical Impression Clinical Impression: Shoulder pain, left - Scribe Statement The provider has reviewed the documentation as recorded by the Walter Alegria Do Provider Attestation: All medical record entries made by the Yairibfreya were at my direction and personally dictated by me. I have reviewed the chart and agree that the record accurately reflects my personal performance of the history, physical exam, medical decision making, and the department course for this patient. I have also personally directed, reviewed, and agree with the discharge instructions and disposition.
[2018-07-22] MEDS ORDERED: Aspirin 325 mg EC Tablets PO STA (20:18)
[2018-07-22 20:52] LABS: BASO # 0.1 K/uL (0.0-0.2); BASO % 1.4 % (0.0-2.0); EOS # 0.2 K/uL (0.0-0.7); EOS % 2.8 % (0.0-4.0); HEMOGLOBIN 14.3 g/dL (11.0-16.0); LYMPH # 2.8 K/uL (1.0-4.3); MEAN CELL VOLUME 88.6 fL (81.0-99.0); MEAN CORPUSCULAR HGB CONC 33.8 g/dL (33.0-37.0); MEAN PLATELET VOLUME 7.7 fL (7.2-11.7); MONO # 0.5 K/uL (0.0-0.8); MONO % 7.3 % (0.0-10.0); NEUT # 3.2 K/uL (1.8-7.0); NEUT % 47.5 % (50.0-75.0); NRBC % 0.3 % (0.0-2.0); RBC 4.79 Mil/uL (3.80-5.20); RED CELL DISTRIBUTION WIDTH 13.4 % (11.5-14.5); WHITE BLOOD COUNT 6.8 K/uL (4.8-10.8)
[2018-07-22] MEDS ORDERED: Aspirin 325 mg EC Tablets PO ONE (20:53)
[2018-07-22 20:55] VITALS: BP 147/80; PULSE 85; RESP 14
[2018-07-22 21:13] LABS: ALB/GLOB RATIO 1.2 (1.0-2.1); ALBUMIN 4.5 g/dL (3.5-5.0); ALT/SGPT 23 U/L (9-52); AST/SGOT 22 U/L (14-36); BLOOD UREA NITROGEN 11 mg/dL (7-17); CALCIUM 9.8 mg/dl (8.6-10.4); GFR NON-AFRICAN AMERICAN > 60
[2018-07-22 21:25] VITALS: O2SAT 98
[2018-07-22 21:50] VITALS: TEMP 97.8
--- NOTE | 2018-07-23 15:17 | RAD ---
Date of service: 07/22/2018 HISTORY: Chest pain COMPARISON: Comparison chest 06/29/2018.. FINDINGS: LUNGS: Minimal bibasilar atelectasis. PLEURA: No significant pleural effusion identified, no pneumothorax apparent. CARDIOVASCULAR: No aortic atherosclerotic calcification present. Normal cardiac size. No pulmonary vascular congestion. OSSEOUS STRUCTURES: No significant abnormalities. VISUALIZED UPPER ABDOMEN: Normal. OTHER FINDINGS: None. IMPRESSION: Minimal bibasilar atelectasis. The
--- NOTE | 2018-07-24 20:58 | CARD ---
APPROVED REPORT Date of service: 07/22/2018 EKG Measurement Heart [id number] TX [id number] <Conclusion> Normal sinus rhythm
== END 2018-07-22 21:50 | disposition home or self-care (01) ==
LOC: C.ER 18:29
DX: M25.512 Pain in left shoulder (principal)

== ENCOUNTER 2018-11-13 21:09 | Emergency (ER) | payer MEDICAID, OTHER ==
[2018-11-13 21:29] VITALS: BP 137/96; PULSE 98; RESP 20; TEMP 98; O2SAT 97
--- NOTE | 2018-11-13 21:58 | C.PDOC ---
History Of Present Illness 58 year old female presents with pain to right parasternal area just GRAB [employer]TER while washing dishes. She has had dry nonproductive cough for the past 2 weeks for which she has been taking cough meds. Time Seen by Provider: 11/13/18 21:36 Chief Complaint (Nursing): Chest Pain History Per: Patient History/Exam Limitations: no limitations Onset/Duration Of Symptoms: Days (2 weeks) Current Symptoms Are (Timing): Still Present Modifying Factors: None Exacerbating Factors: None Alleviating Factors: None Recent travel outside of the [place]: No Past Medical History Reviewed: Historical Data, Nursing Documentation, Vital Signs Vital Signs: Last Vital Signs Temp 98 F 11/13/18 21:24 Pulse 98 H 11/13/18 21:24 Resp 20 11/13/18 21:24 BP 137/96 H 11/13/18 21:24 Pulse Ox 97 11/13/18 21:24 - Medical History PMH: Bronchitis, CAD, HTN, Hypercholesterolemia Denies: Chronic Kidney Disease Family History: States: Unknown Family Hx - Social History Hx Alcohol Use: No Hx Substance Use: No - Immunization History Hx Tetanus Toxoid Vaccination: No Hx Influenza Vaccination: Yes Hx Pneumococcal Vaccination: No Review Of Systems Constitutional: Negative for: Fever, Chills Cardiovascular: Positive for: Chest Pain. Negative for: Palpitations Respiratory: Positive for: Cough. Negative for: Shortness of Breath Gastrointestinal: Negative for: Nausea, Vomiting Skin: Negative for: Rash Neurological: Negative for: Weakness, Numbness Physical Exam - Physical Exam Appears: Non-toxic, Other (Morbidly obese) Skin: Normal Color, Warm, Dry, No Rash Head: Atraumatic, Normacephalic Eye(s): bilateral: Normal Inspection Oral Mucosa: Moist Neck: Normal, Supple Chest: Tenderness (Digitally reproducible to T4 area) Cardiovascular: Rhythm Regular Respiratory: Normal Breath Sounds, No Rales, No Rhonchi, No Wheezing Gastrointestinal/Abdominal: Soft, No Tenderness Back: No CVA Tenderness Neurological/Psych: Oriented x3, Normal Speech ED Course And Treatment O2 Sat by Pulse Oximetry: 97 (Room air) Pulse Ox Interpretation: Normal Medical Decision Making Medical Decision Making: digitally reproducable anterior chest wall discomfort intercostal chronic cough x 2 weeks washing dishes- repetative pectoral muscle movement 02/13: Nuc Stress neg 10/16 Card Cath 2 V disease on cath w Dr. Armstrong defer w/u for normal ekg, and digitally reproducable chest wall discomfort LOW susp of ACS Disposition Doctor Will See Patient In The: Office Counseled Patient/Family Regarding: Studies Performed, Diagnosis - Disposition Referrals: Linda Card MD [Staff Provider] - Disposition: HOME/ ROUTINE Disposition Time: 21:57 Condition: GOOD Additional Instructions: continue intense cardiovascular exercise and weight loss motrin 400 mg every 6 hours as needed for R anterior chest wall discomfort consistent with Costochondritis normal EKG today Instructions: Costochondritis Forms: [facility] ([place] Zealander) - Clinical Impression Clinical Impression: Chest wall discomfort - Scribe Statement The provider has reviewed the documentation as recorded by the Scribe Obie Toscano All medical record entries made by the Scribe were at my direction and personally dictated by me. I have reviewed the chart and agree that the record accurately reflects my personal performance of the history, physical exam, medical decision making, and the department course for this patient. I have also personally directed, reviewed, and agree with the discharge instructions and disposition.
--- NOTE | 2018-11-15 22:40 | CARD ---
APPROVED REPORT Date of service: 11/13/2018 EKG Measurement Heart [id number] OR [id number] <Conclusion> Normal sinus rhythm Normal ECG
== END 2018-11-13 22:12 | disposition home or self-care (01) ==
LOC: C.ER 21:09
DX: R07.89 Other chest pain (principal); I10 Essential (primary) hypertension; E78.00 Pure hypercholesterolemia, unspecified; I25.10 Atherosclerotic heart disease of native coronary artery without angina pectoris